=== PATIENT | female | born 1940 | race Caucasian/White ===

== ENCOUNTER 2018-06-23 03:25 | Emergency (ER) | payer MEDICARE, MEDICAID ==
[~2018-06-23 03:25] MED LIST: ACET500T73 PO; AMLO10TA4 PO; AMOX1TAB63 PO; BUSP10TA PO; BUSP7.5T3 PO; DONE5TAB53 PO; ESCI10TA10 PO; FURO40TA4 PO; LACT1CAP4 PO; LEVO112T5 PO; LEVO137T2 PO; LORA-447 PO; LORA10TA75 PO; Lactobacillus Acidophilus PO; MEMA10TA PO; METO25TA4 PO; NITR100C58 PO; POTA10TA6 PO; RISP0.2518 PO; SERT100T PO; SERT50TA PO; SERT50TA5 PO; SOLI10TA2 PO; TRIA10.8 NS; [UNRECOGNIZED DRUG - CODE] PO
[2018-06-23 03:37] VITALS: BP 107/41
--- NOTE | 2018-06-23 03:50 | ER.PDOC ---
General Chief Complaint: Trauma Stated Complaint: FALL WITH INJURY Time seen by MD: 03:42 Source: patient Exam Limitations: no limitations History of Present Illness Initial Comments Pt fell of her bed at OR and fractured right upper fibula Onset: this evening Recent Injury: Yes Where: other (OR) Severity: mild Allergies: Coded Allergies: No Known Drug Allergies (Verified Allergy, Unknown, 05/01/16) Home Meds Active Scripts Potassium Chloride (KLOR-CON 10) 10 Meq Tablet.er, 20 MEQ PO DAILY24 for 30 Days , #60 TABLET Prov:SHOLA LINN MD 08/13/17 Furosemide (FUROSEMIDE) 40 Mg Tablet, 40 MG PO DAILY24 for 30 Days, #30 TABLET Prov:SHOLA LINN MD 08/13/17 Amoxicillin/Potassium Clav (AUGMENTIN 875-125 TABLET) 1 Each Tablet, 1 EACH PO BID for 5 Days, #10 TABLET Prov:SHOLA LINN MD 08/13/17 Sertraline Hcl (ZOLOFT) 50 Mg Tablet, 100 MG PO DAILY, #30 TABLET Prov:KEITH CUNNINGHAM MD 01/12/17 Risperidone (RISPERDAL) 0.25 Mg Tablet, 0.25 MG PO HS, #30 TABLET Prov:KEITH CUNNINGHAM MD 01/12/17 Levothyroxine Sodium (LEVOTHYROXINE SODIUM) 112 Mcg Tablet, 1 TAB PO DAILY, #30 TAB 5 Refills Prov:CHARBEL IBRAHIM MD 05/04/16 Metoprolol Tartrate 25MG (LOPRESSER 25MG) 25 Mg Tablet, 12.5 MG PO BID, #1 TABLET Prov:CHARBEL IBRAHIM MD 05/04/16 Donepezil Hcl (ARICEPT) 5 Mg Tablet, 10 MG PO HS, #1 TABLET Prov:CHARBEL IBRAHIM MD 05/04/16 Reported Medications Buspirone Hcl (BUSPIRONE HCL) 10 Mg Tablet, 1 TAB PO TID, #60 TAB 2 Refills 08/07/17 Sertraline Hcl (ZOLOFT) 100 Mg Tablet, 200 MG PO DAILY, TABLET 08/07/17 Levothyroxine Sodium (SYNTHROID) 137 Mcg Tablet, 1 TAB PO DAILY, #30 TAB 5 Refills 08/07/17 Amlodipine Besylate (NORVASC) 10 Mg Tablet, 1 TAB PO DAILY, #30 TAB 5 Refills 08/07/17 Loratadine (CLARITIN) 10 Mg Tablet, 1 TAB PO DAILY, #30 TAB 5 Refills 08/07/17 Triamcinolone Acetonide (Nasacort) 10.8 Ml [place], 10.8 ML NS DAILY, SPRAY 01/04/17 Buspirone Hcl (BUSPIRONE HCL) 7.5 Mg Tablet, 7.5 MG PO TID, TABLET 01/04/17 Acetaminophen (TYLENOL EXTRA STRENGTH) 500 Mg Tablet, 500 MG PO BID, TABLET 01/04/17 Memantine Hcl (NAMENDA) 10 Mg Tablet, 1 TAB PO BID, #180 TAB 1 Refill 01/04/17 Lactobacillus Acidophilus (ACIDOPHILUS) 1 Each Capsule, 2 EACH PO BID, CAPSULE 01/04/17 Past Medical History Surgical History: hip, hysterectomy, knee Social History Drug Use: none Review of Systems Constitutional: no symptoms reported Musculoskeletal: see HPI All Other Systems: Reviewed and Negative Physical Exam General Appearance: Alert, No Apparent Distress Lower Extremity: tenderness (right upper leg) Joint Exam: joints nml, nml ROM, nml gait/weight bearing Vascular: no vascular compromise, pulses full/equal Neuro/Psych: sensation nml, motor nml, oriented x3, CN's nml as tested, mood/ affect nml Skin: color nml, warm/dry, no rash Back/Neck: nml inspection EENT: eyes inspection nml, ENT inspection nml, pharynx nml Respiratory: no resp distress, breath sounds nml CVS: reg rate & rhythm, heart sounds nml Abdomen: non-tender, no organomegaly, no bruit/mass Departure Time of Disposition: 03:48 Disposition: HOME, SELF-CARE Impression: Primary Impression: Fracture of right proximal fibula Condition: Stable Patient Instructions: Fibular Fracture, Adult, Treated Without Immobilization Referrals: CARMELO GIBSON TAXI DRIVER SUPERVISOR (PCP) PRIMARY CARE PROVIDER Duration or Time Spent with Pa: SERG WHITTINGTON MD Jun 23, 2018 03:50
--- NOTE | 2018-06-23 04:05 | NUR ---
DISCHARGE CALLED AND NOTIFIED [facility] PATIENT WAS READY FOR DISCHARGE.
--- NOTE | 2018-06-23 04:39 | DIREP ---
PROCEDURE:XRAY TIB & FIB 2 VW-RT COMPARISON:None. INDICATIONS:fall FINDINGS: BONES:Proximal transverse fibular fracture. No tibial fracture JOINTS:Normal. SOFT TISSUES:Normal. OTHER:No additional findings. CONCLUSION:Proximal transverse fibular fracture Dictated by: Kevin Reeves MD on 06/23/2018 at 04:36 AM
[2018-06-23 04:45] VITALS: BP 138/61
[2018-06-23 05:24] VITALS: BP 150/65
[2018-06-23 06:06] VITALS: BP 163/62
--- NOTE | 2018-06-23 06:25 | NUR ---
CALL FOR TRANSPORT CALLED [facility] TO CHECK ON ETA OF TRANSPORT BACK TO [facility]. THEY DID NOT HAVE A TIME AND WILL CALL BACK AND LET NURSE KNOW.
[2018-06-23 08:03] VITALS: BP 163/62
== END 2018-06-23 06:00 | disposition home or self-care (01) ==
LOC: EDBD 03:25 → ER 03:25
DX: S82.831A Other fracture of upper and lower end of right fibula, initial encounter for closed fracture (principal); Z79.2 Long term (current) use of antibiotics; Z79.899 Other long term (current) drug therapy; Z90.710 Acquired absence of both cervix and uterus; W06.XXXA Fall from bed, initial encounter; Y93.89 Activity, other specified; Y92.128 Other place in nursing home as the place of occurrence of the external cause; Y99.8 Other external cause status
CPT/HCPCS: 99285; 73590-RT

== ENCOUNTER → 2018-10-05 | Outpatient (CLI) | payer MEDICARE, MEDICAID ==
[2018-10-05 17:40] LABS: CALCIUM 9.8 mg/dL (8.4-10.5); CARBON DIOXIDE 26.6 mmol/L (20.0-32)
== END | disposition home or self-care (01) ==
LOC: LAB 16:59
PROVIDERS: ATTEND Family Medicine
DX: I11.0 Hypertensive heart disease with heart failure (principal); I50.9 Heart failure, unspecified; E03.9 Hypothyroidism, unspecified; F33.1 Major depressive disorder, recurrent, moderate
CPT/HCPCS: 80048

== ENCOUNTER 2018-11-13 17:30 | Inpatient (IN) | payer MEDICARE, MEDICAID ==
[~2018-11-13] VITALS: Ht 152.4 cm; Wt 69.6 kg
[~2018-11-13 17:30] MED LIST changes: -LEVO175T5 PO
--- NOTE | 2018-11-13 17:31 | NUR ---
ARRIVAL PATIENT TO ROOM 6, VIA EMS. EMS STATES THAT SHE HAS BEEN VOMITING AND STARTED RUNNING FEVER FOR A DAY. PATIENT IS WEAK, AND LISTLESS, BUT ABLE TO COMMUNICATE AND IS ORIENTED. PATIENT IS DIMENISHED THROUGHOUT WITH WHEEZES AND CRACKLES. PATIENT VOMITTED X1 UPON ARRIVAL TO THE ED. PATIENT CONNECTED TO ALL MONITORS, ASSESSMENT COMPLETED, ASSOCIATE MANAGER AFFILIATE MARKETING IN PLACE. MD AT BEDSIDE.
[2018-11-13] MEDS ORDERED: DECADRON ONE (17:39)
[2018-11-13] MEDS ORDERED: DUONEB 0.5 MG-3 MG/3 ML SOLN IH STA (17:39)
[2018-11-13] MEDS ORDERED: DECADRON IH STA (17:39)
[2018-11-13] MEDS ORDERED: DUONEB 0.5 MG-3 MG/3 ML SOLN IH ONE (17:39)
[2018-11-13] MEDS ORDERED: LASIX IV STA (17:41)
[2018-11-13 17:43] VITALS: BP 149/104
[2018-11-13] MEDS ORDERED: ZOFRAN IV STA (17:52)
--- NOTE | 2018-11-13 17:59 | PCM.EKG ---
[facility] Test Date: 2018-11-13 Test Time: 17:57:24 Pat Name: JESSICA STEVE Department: [id number] Room: Gender: F Horticultural Farmworker: : 1940 Requested By: DILMA TENORIO Order Number: [id number] Reading MD: Measurements Intervals [place]vin Rate: 121 P: 49 DE: 150 QRS: -36 QRSD: 130 T: 128 QT: 306 QTc: 434 Interpretive Statements Sinus tachycardia Left axis deviation Nonspecific intraventricular block Inferior infarct, age undetermined Abnormal ECG Compared to ECG 08/09/2017 09:30:00 Left-axis deviation now present Sinus rhythm no longer present Myocardial infarct finding still present Please click the below link to view image of tracing.
[2018-11-13 18:09] LABS: BASOPHIL % 0.2 % (0.0-0.2); HEMOGLOBIN 14.5 g/dL (12.0-15.0); LYMPHOCYTES # 2.4 10^3/uL (1.0-4.8); LYMPHOCYTES % 15.1 % (24.0-44.0); MEAN CELL HGB 31.1 pg (26-34); MEAN CELL HGB CONCENTRATION 32.8 g/dL (33-37); MEAN CORP VOLUME 94.8 fL (78-100); MEAN PLATELET VOLUME 10.1 fL (7.8-11.0); MONOCYTES # 1.5 10^3/uL (0.3-0.8); MONOCYTES % 9.1 % (5.0-12.0); NEUTROPHIL # 12.2 10^3/uL (1.8-7.7); NEUTROPHILS % 75.4 % (41.0-85.0); RED CELL DISTRIBUTION WIDTH 14.7 % (11.5-14.5); WHITE BLOOD CELL 16.1 10^3/uL (4.5-11.0)
--- NOTE | 2018-11-13 18:20 | DIREP ---
PROCEDURE:CHEST 1 VIEW COMPARISON:[facility], CR, XRAY CHEST 2 VWS, 08/09/2017, 04:40 PM. INDICATIONS:dyspnea, crackles , FINDINGS: LUNGS/PLEURA:No significant pulmonary parenchymal abnormalities. No effusions. VASCULATURE:Normal. Unremarkable pulmonary vasculature. CARDIAC:Normal. No cardiac silhouette abnormality or cardiomegaly. MEDIASTINUM:Atherosclerotic aorta with no visible aneurysm. BONES:Normal. No fracture or visible bony lesion. OTHER:Fibrotic changes of the lungs. EKG leads. Elevated right diaphragm. CONCLUSION:Fibrotic changes are seen. No acute cardiopulmonary disease. Dictated by: Ernesto Chen M.D. on 11/13/2018 at 06:19 PM
[2018-11-13 18:35] LABS: CALCIUM 9.6 mg/dL (8.4-10.5); CARBON DIOXIDE 22.9 mmol/L (20.0-32)
[2018-11-13] MEDS ORDERED: ZOFRAN ONE (18:42)
--- NOTE | 2018-11-13 18:59 | ER.PDOC ---
General Chief Complaint: Fever Stated Complaint: VOMITING Time seen by MD: 19:00 Source: patient Exam Limitations: no limitations History of Present Illness Timing/Duration: 24 hours Severity: moderate Activities at Onset: activity/exertion, rest Prior Episodes/Possible Cause: occasional episodes Modifying Factors: improves with albuterol inhaler, improves with albuterol nebulizer, improves with coughing, improves with lying down, improves with oxygen Associated Symptoms: cough Prior symptoms/Treatment: Recenly Seen Allergies: Coded Allergies: No Known Drug Allergies (Verified Allergy, Unknown, 05/01/16) Home Meds Active Scripts Potassium Chloride (KLOR-CON 10) 10 Meq Tablet.er, 20 MEQ PO DAILY24 for 30 Days , #60 TABLET Prov:SHOLA LINN MD 08/13/17 Furosemide (FUROSEMIDE) 40 Mg Tablet, 40 MG PO DAILY24 for 30 Days, #30 TABLET Prov:SHOLA LINN MD 08/13/17 Amoxicillin/Potassium Clav (AUGMENTIN 875-125 TABLET) 1 Each Tablet, 1 EACH PO BID for 5 Days, #10 TABLET Prov:SHOLA LINN MD 08/13/17 Sertraline Hcl (ZOLOFT) 50 Mg Tablet, 100 MG PO DAILY, #30 TABLET Prov:KEITH CUNNINGHAM MD 01/12/17 Risperidone (RISPERDAL) 0.25 Mg Tablet, 0.25 MG PO HS, #30 TABLET Prov:KEITH CUNNINGHAM MD 01/12/17 Levothyroxine Sodium (LEVOTHYROXINE SODIUM) 112 Mcg Tablet, 1 TAB PO DAILY, #30 TAB 5 Refills Prov:CHARBEL IBRAHIM MD 05/04/16 Metoprolol Tartrate 25MG (LOPRESSER 25MG) 25 Mg Tablet, 12.5 MG PO BID, #1 TABLET Prov:CHARBEL IBRAHIM MD 05/04/16 Donepezil Hcl (ARICEPT) 5 Mg Tablet, 10 MG PO HS, #1 TABLET Prov:CHARBEL IBRAHIM MD 05/04/16 Reported Medications Buspirone Hcl (BUSPIRONE HCL) 10 Mg Tablet, 1 TAB PO TID, #60 TAB 2 Refills 08/07/17 Sertraline Hcl (ZOLOFT) 100 Mg Tablet, 200 MG PO DAILY, TABLET 08/07/17 Levothyroxine Sodium (SYNTHROID) 137 Mcg Tablet, 1 TAB PO DAILY, #30 TAB 5 Refills 08/07/17 Amlodipine Besylate (NORVASC) 10 Mg Tablet, 1 TAB PO DAILY, #30 TAB 5 Refills 08/07/17 Loratadine (CLARITIN) 10 Mg Tablet, 1 TAB PO DAILY, #30 TAB 5 Refills 08/07/17 Triamcinolone Acetonide (Nasacort) 10.8 Ml [place], 10.8 ML NS DAILY, SPRAY 01/04/17 Buspirone Hcl (BUSPIRONE HCL) 7.5 Mg Tablet, 7.5 MG PO TID, TABLET 01/04/17 Acetaminophen (TYLENOL EXTRA STRENGTH) 500 Mg Tablet, 500 MG PO BID, TABLET 01/04/17 Memantine Hcl (NAMENDA) 10 Mg Tablet, 1 TAB PO BID, #180 TAB 1 Refill 01/04/17 Lactobacillus Acidophilus (ACIDOPHILUS) 1 Each Capsule, 2 EACH PO BID, CAPSULE 01/04/17 Past Medical History Medical History: asthma, cardiac problems, congestive heart failure, COPD, high cholesterol, hypertension, thyroid disease Surgical History: hysterectomy Social History Smoking: non-smoker Alcohol Use: none Drug Use: none Reviewed Nursing Reviewed: Vital Signs, Abn. Noted Review of Systems All Other Systems: Reviewed and Negative Physical Exam General Appearance: Lethargic HEENT: PERRL/EOMI, Normal ENT Inspection, TMs Normal, Pharynx Normal Neck: Non-Tender, Full Range of Motion, Supple, Normal Inspection Respiratory: prolonged expirations, rales, retractions Gastrointestinal: Normal Bowel Sounds, No Organomegaly, No Pulsatile Mass, Non Tender, Soft Extremities: Normal Range of Motion, Non-Tender, Normal Inspection, No Pedal Edema, No Calf Tenderness, Normal Capillary Refill Neurologic/Psychiatric: pipeline technician II-XII NML as Tested, No Motor/Sensory Deficits, Alert, Normal Mood/Affect, Oriented x 3 Skin: Normal Color, Warm/Dry Lymphatic: No Adenopathy Results/Orders Results/Orders Laboratory Tests Test 11/13/18 18:00 White Blood Count 16.1 10^3/uL (4.5-11.0) Red Blood Count 4.66 10^6/uL (4.00-5.20) Hemoglobin 14.5 g/dL (12.0-15.0) Hematocrit 44.2 % (36.0-46.0) Mean Corpuscular Volume 94.8 fL (78-100) Mean Corpuscular Hemoglobin 31.1 pg (26-34) Mean Corpuscular Hemoglobin Concent 32.8 g/dL (33-37) Red Cell Distribution Width 14.7 % (11.5-14.5) Platelet Count 179 10^3/uL (150-400) Mean Platelet Volume 10.1 fL (7.8-11.0) Neutrophils (%) (Auto) 75.4 % (41.0-85.0) Lymphocytes (%) (Auto) 15.1 % (24.0-44.0) Monocytes (%) (Auto) 9.1 % (5.0-12.0) Neutrophils # (Auto) 12.2 10^3/uL (1.8-7.7) Lymphocytes # (Auto) 2.4 10^3/uL (1.0-4.8) Monocytes # (Auto) 1.5 10^3/uL (0.3-0.8) Absolute Immature Granulocyte (auto 0.03 10^3 u/L (0-2) Eosinophils % 0.0 % (0.0-5.0) Basophils % 0.2 % (0.0-0.2) Basophils # 0.0 10^3/uL (0.0-0.1) Eosinophil Count 0.0 10^3/uL (0.0-0.2) Prothrombin Time 10.5 SEC (9.8-11.9) Prothrombin Time INR (Non-Therap) 1.1 Activated Partial Thromboplast Time 26.3 SEC (24.67-30.72) D-Dimer 2.14 mg/L (0.19-0.49) Sodium Level 138 mmol/L (132-145) Potassium Level 3.7 mmol/L (3.6-5.2) Chloride Level 99.0 mmol/L (96-109) Carbon Dioxide Level 22.9 mmol/L (20.0-32) Anion Gap 19.8 Blood Urea Nitrogen 18 mg/dL (7-18) Creatinine 1.30 mg/dL (0.59-1.40) Estimated GFR () 48.1 (>/=60) BUN/Creatinine Ratio 13.0 Glucose Level 158 mg/dL (70-110) Calcium Level 9.6 mg/dL (8.4-10.5) Total Bilirubin 0.4 mg/dL (0.2-1.0) Aspartate Amino Transf (AST/SGOT) 28 U/L (0-35) Alanine Aminotransferase (ALT/SGPT) 16 U/L (12-78) Alkaline Phosphatase 84 U/L (50-136) Total Creatine Kinase 73 U/L (26-192) Troponin I 0.04 ng/mL (0.00-0.05) Pro-B-Type Natriuretic Peptide 1331 pg/mL (0-450) Total Protein 8.9 g/dL (6.4-8.2) Albumin 3.3 g/dL (3.4-5.0) Globulin 5.6 Percent Immature Gran (Cell Imm) 0.20 % (0.00-0.50) Helicobacter pylori Screen NEGATIVE (NEGATIVE) Administered Medications Medications (Trade) Dose Ordered Sig/Nj Route PRN Reason Start Time Stop Time Status Last Admin Dose Admin Dexamethasone Sodium Phosphate (Decadron) 4 mg STAT STAT IH 11/13/18 17:39 11/13/18 17:41 DC 11/13/18 17:45 Albuterol/ Ipratropium (Duoneb 0.5 Mg-3 Mg/3 ml Soln) 3 ml STAT STAT IH 11/13/18 17:39 11/13/18 17:41 DC 11/13/18 17:45 Ondansetron HCl (Zofran) 4 mg STAT STAT IV 11/13/18 17:52 11/13/18 17:53 DC 11/13/18 18:45 EKG/XRAY/CT/US EKG Comments: LBBB Consult/PCP Time Consult/PCP Called: 19:00 Consult/PCP: DR LEW Course Sepsis Screening Results: Posi: POSITIVE SEPSIS RISK Duration or Total Time Spent w: 10 Vitals & review Data Vital Sign - Last 24 Hours 11/13/18 11/13/18 11/13/18 11/13/18 17:33 17:33 17:43 17:46 Temp 101.7 101.2 101.2 101.7 101.2 101.2 Pulse 106 102 102 109 Resp 32 32 32 26 B/P (MAP) 149/104 (119) Pulse Ox 92 92 93 O2 Delivery Nasal Canula Nasal Canula 11/13/18 17:47 Pulse 115 Resp 26 Pulse Ox 93 Laboratory Tests Test 11/13/18 18:00 White Blood Count 16.1 10^3/uL Red Blood Count 4.66 10^6/uL Hemoglobin 14.5 g/dL Hematocrit 44.2 % Mean Corpuscular Volume 94.8 fL Mean Corpuscular Hemoglobin 31.1 pg Mean Corpuscular Hemoglobin Concent 32.8 g/dL Red Cell Distribution Width 14.7 % Platelet Count 179 10^3/uL Mean Platelet Volume 10.1 fL Neutrophils (%) (Auto) 75.4 % Lymphocytes (%) (Auto) 15.1 % Monocytes (%) (Auto) 9.1 % Neutrophils # (Auto) 12.2 10^3/uL Lymphocytes # (Auto) 2.4 10^3/uL Monocytes # (Auto) 1.5 10^3/uL Absolute Immature Granulocyte (auto 0.03 10^3 u/L Eosinophils % 0.0 % Basophils % 0.2 % Basophils # 0.0 10^3/uL Eosinophil Count 0.0 10^3/uL Prothrombin Time 10.5 SEC Prothrombin Time INR (Non-Therap) 1.1 Activated Partial Thromboplast Time 26.3 SEC D-Dimer 2.14 mg/L Sodium Level 138 mmol/L Potassium Level 3.7 mmol/L Chloride Level 99.0 mmol/L Carbon Dioxide Level 22.9 mmol/L Anion Gap 19.8 Blood Urea Nitrogen 18 mg/dL Creatinine 1.30 mg/dL Estimated GFR () 48.1 BUN/Creatinine Ratio 13.0 Glucose Level 158 mg/dL Calcium Level 9.6 mg/dL Total Bilirubin 0.4 mg/dL Aspartate Amino Transf (AST/SGOT) 28 U/L Alanine Aminotransferase (ALT/SGPT) 16 U/L Alkaline Phosphatase 84 U/L Total Creatine Kinase 73 U/L Troponin I 0.04 ng/mL Pro-B-Type Natriuretic Peptide 1331 pg/mL Total Protein 8.9 g/dL Albumin 3.3 g/dL Globulin 5.6 Percent Immature Gran (Cell Imm) 0.20 % Helicobacter pylori Screen NEGATIVE Current Medications Medications (Trade) Dose Ordered Sig/Nj PRN Reason Start Time Stop Time Status Last Admin Piperacillin Sod/ Tazobactam Sod 3.375 gm/Sodium Chloride 100 ml @ 100 mls/hr Q6H 11/13/18 19:00 12/13/18 18:59 Sepsis Infection Criteria Pres: None O2 Sat by Pulse Oximetry: 93 Departure Time of Disposition: 19:00 Disposition: 09 ADMITTED INPATIENT Impression: Primary Impression: Pneumonia Condition: Stable Referrals: CARMELO GIBSON AUTOMOBILE TIRE BUILDER (PCP) PRIMARY CARE PROVIDER Duration or Time Spent with Pa: 2 HRS DILMA TENORIO MD Nov 13, 2018 18:59
[2018-11-13] MEDS ORDERED: ZOSYN 3.375 GRAM VIAL 3.375 GM in NS 100ML 100 ML IV SCH (19:00)
[2018-11-13 19:51] VITALS: BP 152/113
--- NOTE | 2018-11-13 19:52 | NUR ---
Fever Notifed Dr. Del Valle of patients fever. Suggested antipyretic. Doctor Ivon states that they can treat fever upstairs.
[2018-11-13 20:03] LABS: BILIRUBIN,URINE NEGATIVE (NEGATIVE); UROBILINOGEN,URINE NORMAL (NEGATIVE)
[2018-11-13 20:14] LABS: APPEARANCE,URINE CLOUDY (CLEAR); UA COLOR YELLOW (YELLOW)
[2018-11-13 21:15] VITALS: BP 129/93
[2018-11-13] MEDS ORDERED: LASIX ONE (21:23)
[2018-11-13] MEDS ORDERED: ZOSYN 3.375 GRAM VIAL IV ONE (21:23)
[2018-11-13] MEDS ORDERED: NS 100ML 100 ML IV ONE (21:24)
[2018-11-13] MEDS ORDERED: TYLENOL PO PRN (22:00)
[2018-11-13] MEDS: NS 1000ML 1,000 ML SCH (22:01)
--- NOTE | 2018-11-13 23:38 | PCM.HP ---
HISTORY & PHYSICAL HISTORY & PHYSICAL DATE OF ADMISSION: CHIEF COMPLAINT: 78 yo female from SNF in [facility] comes in with altered LOC, UroSepsis, Exac of acute Diastolic CHf and infectious enceph. H&P # [id number] HISTORY OF PRESENT ILLNESS: ALLERGIES: CURRENT MEDICATIONS: PAST MEDICAL HISTORY: SOCIAL HISTORY: FAMILY HISTORY: REVIEW OF SYSTEMS: PHYSICAL EXAMINATION: GENERAL: VITAL SIGNS: HEENT: NECK: LUNGS: HEART: ABDOMEN: EXTREMITIES: NEUROLOGIC: LABORATORY DATA: IMPRESSION: CARE PLAN: AROLDO LEW MD Nov 13, 2018 23:38
[2018-11-14] MEDS ORDERED: ULTRAM PO PRN
[2018-11-14] MEDS ORDERED: ZOFRAN IV PRN
--- NOTE | 2018-11-14 00:02 | HPH ---
ADMIT DATE: 11/13/2018 CHIEF COMPLAINT: Nausea, vomiting and mental status change. HISTORY OF PRESENT ILLNESS: This is a 78-year-old female with a past medical history of multiple medical problems who currently is living at a senior living facility in [place], who presents to the Emergency Department after worsening mental status change. The family was called earlier today because the patient had a temperature of 102 and when the family arrived, the patient apparently had worsening of her mental status. She has a baseline dementia, but it was much worse when they arrived. The fever had resolved, but she had begun having nausea and vomiting and mental status change. Over the next several hours, she began having worsening shortness of breath as well as wheezing and coughing and a decrease in her oxygen level as well as a decrease overall in her mentation level and there was some concern for possible aspiration. However, she did not have any further fever. She was very confused and not able to describe what was wrong with her or where she was feeling bad. PAST MEDICAL HISTORY: 1. Hypertension. 2. Generalized anxiety. 3. Dementia. 4. Osteoarthritis. 5. Allergic rhinitis. 6. Hypothyroidism. 7. Dysthymia. 8. Altered mental status with acute psychosis on top of dementia. 9. Chronic diastolic congestive heart failure. MEDICATIONS: See admit medication reconciliation form. ALLERGIES: No known drug allergies. PAST SURGICAL HISTORY: Hysterectomy - partial. SOCIAL HISTORY: Tobacco -- quit 20 years ago, alcohol -- none. The patient currently lives in a senior living facility in [place], [place]. She does have family that lives nearby. FAMILY HISTORY: Reviewed. REVIEW OF SYSTEMS: The 11-point review of systems is reviewed and is unchanged other than that as mentioned above. OBJECTIVE: VITAL SIGNS: Temperature 102.7, heart rate 110, respirations 26, blood pressure 152/113, oxygen saturation 90% on 2 liters nasal cannula. GENERAL: This is an elderly appearing female, in mild distress. She is moaning. She is awake, but not alert. I could not get her to answer questions or follow commands. HEENT: Atraumatic, normocephalic. Sclerae are clear and anicteric. Oral mucosa is moist. NECK: Soft, supple, normal range of motion, no tenderness, bruits, goiter, mass or adenopathy. There is no JVD. LUNGS: Decreased breath sounds bilaterally with rhonchi at bilateral bases. HEART: Regular rate and rhythm without murmurs, S3 or S4. ABDOMEN: Soft, nontender, nondistended. EXTREMITIES: No new changes or edema. LABORATORY DATA: WBC 16.1, hemoglobin 14.5, hematocrit 44.2, platelets 179. Sodium 138, potassium 3.7, chloride 99, CO2 of 22.9, BUN 18, creatinine 1.3, glucose 158. ProBNP 1331. Total protein 8.9, albumin 3.3. UA: Positive nitrite, too numerous to count wbc's. Chest x-ray: "Fibrotic changes are seen, no acute cardiopulmonary disease." ASSESSMENT: 1. Acute altered mental status. 2. Infectious encephalopathy -- present on admission. 3. Severe sepsis. 4. Urinary tract infection. 5. Probable aspiration pneumonia. 6. Chronic obstructive pulmonary disease. 7. Probable acute diastolic congestive heart failure. PLAN: 1. The patient is admitted to [facility] telemetry where she will be diuresed very gently. She does need some IV fluids for her sepsis and hydration, but also we need to be cautious with fluids because of her volume overload. 2. I am going to start her on Zosyn and azithromycin. 3. We will put her on stress ulcer and DVT prophylaxis. 4. Await further culture results. Keith Mcnally MD DR: LIBIA/itzel JOB# [id number]
[2018-11-14 01:13] VITALS: BP 135/86
[2018-11-14] MEDS ORDERED: LEVO175T5 PO (01:57)
[2018-11-14] MEDS ORDERED: ZOSYN 3.375 GRAM VIAL IV ONE ×2 (04:22→17:29)
[2018-11-14] MEDS ORDERED: NS 100ML 100 ML IV ONE ×2 (04:22→17:29)
[2018-11-14] MEDS: ZOSYN 3.375 GM/50 ML IV SCH ×4 (04:28→17:31)
[2018-11-14] MEDS: NS 1000ML 1,000 ML SCH ×2 (05:00→16:37)
[2018-11-14 05:35] VITALS: BP 117/56
[2018-11-14 05:36] LABS: BASOPHIL % 0.1 % (0.0-0.2); HEMOGLOBIN 12.3 g/dL (12.0-15.0); LYMPHOCYTES # 3.8 10^3/uL (1.0-4.8); LYMPHOCYTES % 20.3 % (24.0-44.0); MEAN CELL HGB 31.2 pg (26-34); MEAN CELL HGB CONCENTRATION 32.6 g/dL (33-37); MEAN CORP VOLUME 95.7 fL (78-100); MEAN PLATELET VOLUME 9.9 fL (7.8-11.0); MONOCYTES # 1.8 10^3/uL (0.3-0.8); MONOCYTES % 9.7 % (5.0-12.0); NEUTROPHILS % 69.9 % (41.0-85.0); PLATELET COUNT 164 10^3/uL (150-400); RED CELL DISTRIBUTION WIDTH 14.6 % (11.5-14.5); WHITE BLOOD CELL 18.5 10^3/uL (4.5-11.0)
[2018-11-14 05:54] LABS: CALCIUM 8.9 mg/dL (8.4-10.5); CARBON DIOXIDE 25.6 mmol/L (20.0-32)
[2018-11-14 09:33] VITALS: BP 140/58
[2018-11-14] MEDS: PROTONIX PO SCH (09:43)
[2018-11-14] MEDS ORDERED: CHLORASEPTIC MM PRN (10:00)
--- NOTE | 2018-11-14 10:00 | NUR ---
DISCHARGE PLAN CASE MANAGEMENT VISITED WITH PATIENT AND DAUGHTER CONCERNING DISCHARGE PLAN AND NEEDS. CURRENTLY IS A SENIOR LIVING RESIDENT AT [facility]. CM SPOKE WITH ELIOT YOUSSEF OF [facility] AND THE PLAN IS FOR PATIENT TO BE DISCHARGED BACK TO CENTER WHEN DISCHARGED FROM [facility]. PATIENT AND DAUGHTER ARE BOTH IN AGREEABLE WITH THE DISCHARGE PLAN. DENIES FURTHER NEEDS AT THIS TIME.
[2018-11-14 11:45] VITALS: BP 114/82
--- NOTE | 2018-11-14 12:30 | NUR ---
MOUTH SWABS PT OFFERED MOUTH SWABS AT THIS TIME. PT REFUSED TO USE
--- NOTE | 2018-11-14 13:29 | NUR ---
SWALLOW SCREEN SWALLOW SCREEN PERFORMED AT THIS TIME. PT DID NOT PASS. C JANUARY, PT NOTIFIED.
--- NOTE | 2018-11-14 14:30 | NUR ---
SPEECH PER C MAY, PT SPEECH THERAPY UNABLE TO COME TODAY D/T NO THERAPIST HERE TO SEE PT
[2018-11-14 16:25] VITALS: BP 124/65
--- NOTE | 2018-11-14 18:04 | NUR ---
DAUGHTER DAUGHTER AT DESK YELLING AT STAFF. ATTEMPTED TO EDUCATE DAUGHTER THAT PT IS NPO D/T FAILING BESIDE SWALLOW EVAL PERFORMED BY THIS NURSE. DAUGHTER CONTINUES TO YELL AND STATES "NOW I KNOW WHY NO ONE WANTS TO STAY IN THIS [facility]" DAUGHTER REFUSES TO SPEAK TO CHARGE NURSE OR THIS NURSE.
--- NOTE | 2018-11-14 18:35 | NUR ---
Report Received report from Debora Mendez RN
[2018-11-14 20:03] VITALS: BP 144/58
--- NOTE | 2018-11-14 22:34 | PRM.PN ---
Subjective Subjective Date: Nov 14, 2018 Time: 22:34 Subjective a little more alert. Able to answer more questions. Sttill not able to really eat much. Very weak. Unable to stand. VTE VTE Risk Total Score: 4 VTE Risk Score VTE Risk: Score 0-1 = Low Risk (Aggressive mobilization; early ambulation; no VTE prophylaxis required) Score 2: Moderate Risk (Intermittent/Pneumatic Compression Device OR Lovenox/Heparin/Coumadin) Score 3-4: High Risk (Intermittent/Pneumatic Compression Device AND Lovenox/Heparin/Coumadin) Score > or =5: Highest Risk (Intermittent/Pneumatic Compression Device AND Lovenox/Heparin/Coumadin) Antico:Hep/LMWH/Coum/Xarelto: No Mechanical device ordered: No Review of Systems Constitutional: Weakness Respiratory: Shortness of breath Cardiovascular: Edema; No: Chest Pain, Palpitations, Orthopnea, Paroxysmal Noc. Dyspnea, Lt Headedness, Other Genitourinary: Dysuria, Frequency Neurological: Weakness, Incoordination, Change in speech, Confusion Allergies: Coded Allergies: No Known Drug Allergies (Verified Allergy, Unknown, 05/01/16) Scheduled Acetaminophen (Tylenol Extra Strength), 500 MG PO BID, (Reported) Amlodipine Besylate (Norvasc), 1 TAB PO DAILY, (Reported) Buspirone Hcl (Buspirone Hcl), 1 TAB PO TID, (Reported) Donepezil Hcl (Aricept), 10 MG PO HS Lactobacillus Acidophilus (Acidophilus), 2 EACH PO BID, (Reported) Levothyroxine Sodium (Levothyroxine Sodium), 1 TAB PO DAILY, (Reported) Loratadine (Claritin), 1 TAB PO DAILY, (Reported) Memantine Hcl (Namenda), 1 TAB PO BID, (Reported) Metoprolol Tartrate 25MG (Lopresser 25MG), 12.5 MG PO BID Risperidone (Risperdal), 0.25 MG PO HS Sertraline Hcl (Zoloft), 200 MG PO DAILY, (Reported) Triamcinolone Acetonide (Nasacort), 10.8 ML NS DAILY, (Reported) Discontinued Medications Amoxicillin/Potassium Clav (Augmentin 875-125 Tablet), 1 EACH PO BID Discontinued Reason: No Longer Taking Buspirone Hcl (Buspirone Hcl), 7.5 MG PO TID, (Reported) Discontinued Reason: No Longer Taking Furosemide (Furosemide), 40 MG PO DAILY24 Discontinued Reason: No Longer Taking Levothyroxine Sodium (Levothyroxine Sodium), 1 TAB PO DAILY Discontinued Reason: No Longer Taking Levothyroxine Sodium (Synthroid), 1 TAB PO DAILY, (Reported) Discontinued Reason: Prescription changed Potassium Chloride (Klor-Con 10), 20 MEQ PO DAILY24 Discontinued Reason: No Longer Taking Sertraline Hcl (Zoloft), 100 MG PO DAILY Discontinued Reason: No Longer Taking Objective Vitals and I/O Vital Sign - Last 24 Hours 11/13/18 11/13/18 11/14/18 11/14/18 23:35 23:35 01:13 05:35 Temp 99.1 99.2 99.1 99.2 Pulse 110 98 87 Resp 26 26 18 20 B/P (MAP) 135/86 (102) 117/56 (76) Pulse Ox 90 90 96 92 O2 Delivery Nasal Cannula Nasal Canula Nasal Canula O2 Flow Rate 3.00 3.00 3.00 11/14/18 11/14/18 11/14/18 11/14/18 09:33 09:45 10:05 10:21 Temp 98.3 98.3 Pulse 70 91 91 Resp 16 20 20 B/P (MAP) 140/58 (85) Pulse Ox 94 93 93 O2 Delivery Nasal Canula Nasal Cannula Nasal Cannula Nasal Cannula O2 Flow Rate 3.00 3.00 3.00 3.00 FiO2 32 32 11/14/18 11/14/18 11/14/18 11/14/18 11:45 16:25 20:03 20:18 Temp 99.8 98.8 99.8 98.8 Pulse 76 88 74 80 Resp 18 11 18 18 B/P (MAP) 114/82 (93) 124/65 (84) 144/58 (86) Pulse Ox 98 94 95 96 O2 Delivery Nasal Canula Nasal Canula Nasal Canula Nasal Cannula O2 Flow Rate 3.00 3.00 3.00 3.00 FiO2 32 11/14/18 21:42 O2 Delivery Nasal Cannula O2 Flow Rate 3.00 Intake and Output 11/13/18 11/13/18 11/14/18 15:00 23:00 07:00 Intake Total 0 ml Output Total 650 ml Balance -650 ml General: Alert, Oriented X3, Cooperative, No acute distress HEENT: PERRLA, EOMI Lungs: Normal air movement, Other Heart: Regular rate, Normal S1, Normal S2 Abdomen: Normal bowel sounds, Soft, No tenderness Extremities: No clubbing, No cyanosis, Other Neuro: Normal speech, Strength at 5/5 X4 ext, Cranial nerves 3-12 NL Psych/Mental Status: Mood NL All Results(Lab/Rad) Laboratory Tests Test 11/14/18 05:10 White Blood Count 18.5 10^3/uL Red Blood Count 3.94 10^6/uL Hemoglobin 12.3 g/dL Hematocrit 37.7 % Mean Corpuscular Volume 95.7 fL Mean Corpuscular Hemoglobin 31.2 pg Mean Corpuscular Hemoglobin Concent 32.6 g/dL Red Cell Distribution Width 14.6 % Platelet Count 164 10^3/uL Mean Platelet Volume 9.9 fL Neutrophils (%) (Auto) 69.9 % Lymphocytes (%) (Auto) 20.3 % Monocytes (%) (Auto) 9.7 % Neutrophils # (Auto) 13.0 10^3/uL Lymphocytes # (Auto) 3.8 10^3/uL Monocytes # (Auto) 1.8 10^3/uL Eosinophils % 0.0 % Basophils % 0.1 % Basophils # 0.0 10^3/uL Eosinophil Count 0.0 10^3/uL Sodium Level 141 mmol/L Potassium Level 3.6 mmol/L Chloride Level 103.0 mmol/L Carbon Dioxide Level 25.6 mmol/L Anion Gap 16.0 Blood Urea Nitrogen 22 mg/dL Creatinine 1.34 mg/dL Estimated GFR () 46.4 BUN/Creatinine Ratio 16.0 Glucose Level 128 mg/dL Hemoglobin A1c 4.9 % Calcium Level 8.9 mg/dL Total Bilirubin 0.3 mg/dL Aspartate Amino Transf (AST/SGOT) 25 U/L Alanine Aminotransferase (ALT/SGPT) 13 U/L Alkaline Phosphatase 58 U/L Total Creatine Kinase 121 U/L Total Protein 7.5 g/dL Albumin 2.7 g/dL Globulin 4.8 Triglycerides Level 78 mg/dL Cholesterol Level 198 mg/dL LDL Cholesterol, Calculated 142.4 VLDL Cholesterol 15.6 HDL Cholesterol 40 mg/dL Cholesterol Ratio (LDL/HDL) 4.381661 Current Medications Medications (Trade) Dose Ordered Sig/Nj Route PRN Reason Start Time Stop Time Status Last Admin Dose Admin Dexamethasone Sodium Phosphate (Decadron) 4 mg STAT STAT IH 11/13/18 17:39 11/13/18 17:41 DC 11/13/18 17:45 Albuterol/ Ipratropium (Duoneb 0.5 Mg-3 Mg/3 ml Soln) 3 ml STAT STAT IH 11/13/18 17:39 11/13/18 17:41 DC 11/13/18 17:45 Albuterol/ Ipratropium (Duoneb 0.5 Mg-3 Mg/3 ml Soln) 3 ml STK-MED ONCE IH 11/13/18 17:39 11/13/18 17:41 DC Dexamethasone Sodium Phosphate (Decadron) 4 mg STK-MED ONCE .ROUTE 11/13/18 17:39 11/13/18 17:41 DC Furosemide (Lasix) 40 mg STAT STAT IV 11/13/18 17:41 11/13/18 17:42 DC 11/13/18 22:01 Ondansetron HCl (Zofran) 4 mg STAT STAT IV 11/13/18 17:52 11/13/18 17:53 DC 11/13/18 18:45 Ondansetron HCl (Zofran) 4 mg STK-MED ONCE .ROUTE 11/13/18 18:42 11/13/18 18:44 DC Piperacillin Sod/ Tazobactam Sod 3.375 gm/Sodium Chloride 100 ml @ 100 mls/hr Q6H IV 11/13/18 19:00 11/13/18 21:34 DC 11/13/18 19:00 Sodium Chloride 1,000 ml @ 100 mls/hr Q10H IV 11/13/18 19:00 12/13/18 18:59 11/13/18 22:01 Piperacillin/ Tazobactam/ Dextrose (Zosyn 3.375 Gm/ 50 ml) 3.375 gm Q6 IV 11/14/18 00:00 12/14/18 00:00 11/14/18 17:31 Furosemide (Lasix) 40 mg STK-MED ONCE .ROUTE 11/13/18 21:23 11/13/18 21:25 DC Piperacillin Sod/ Tazobactam Sod (Zosyn 3.375 Gram Vial) 3.375 gm STK-MED ONCE IV 11/13/18 21:23 11/13/18 21:25 DC Sodium Chloride 100 ml @ ud STK-MED ONCE IV 11/13/18 21:24 11/13/18 21:25 DC Acetaminophen (Tylenol) 1,000 mg Q6HR PRN PO PAIN 11/13/18 22:00 11/14/18 00:31 DC Acetaminophen (Tylenol) 1,000 mg Q6H PRN PO PAIN MILD 11/14/18 00:00 12/14/18 00:00 Ondansetron HCl (Zofran) 4 mg Q4H PRN IV NAUSEA / VOMITING 11/14/18 00:00 12/14/18 00:00 Pantoprazole Sodium (Protonix) 40 mg DAILY PO 11/14/18 09:00 12/14/18 08:59 Tramadol HCl (Ultram) 50 mg Q4HR PRN PO PAIN 11/14/18 00:00 12/14/18 00:00 Sodium Chloride 100 ml @ STK-MED ONCE IV 11/14/18 04:22 11/14/18 04:24 DC Piperacillin Sod/ Tazobactam Sod (Zosyn 3.375 Gram Vial) 3.375 gm STK-MED ONCE IV 11/14/18 04:22 11/14/18 04:24 DC Phenol/Menthol (Chloraseptic) 1 sprays PRN PRN MM PAIN 11/14/18 10:00 12/14/18 09:59 Sodium Chloride 100 ml @ STK-MED ONCE IV 11/14/18 17:29 11/14/18 17:31 DC Piperacillin Sod/ Tazobactam Sod (Zosyn 3.375 Gram Vial) 3.375 gm STK-MED ONCE IV 11/14/18 17:29 11/14/18 17:31 DC Course Sepsis Screening Results: Posi: POSITIVE Sepsis Qualifier/Stage: SEPSIS RISK Duration or Total Time Spent w: 2 HRS Vitals & review Data Vital Sign - Last 24 Hours 11/13/18 11/13/18 11/13/18 11/13/18 17:33 17:33 17:43 17:46 Temp 101.7 101.2 101.2 101.7 101.2 101.2 Pulse 106 102 102 109 Resp 32 32 32 26 B/P (MAP) 149/104 (119) Pulse Ox 92 92 93 O2 Delivery Nasal Canula Nasal Canula 11/13/18 17:47 Pulse 115 Resp 26 Pulse Ox 93 Laboratory Tests Test 11/13/18 18:00 White Blood Count 16.1 10^3/uL Red Blood Count 4.66 10^6/uL Hemoglobin 14.5 g/dL Hematocrit 44.2 % Mean Corpuscular Volume 94.8 fL Mean Corpuscular Hemoglobin 31.1 pg Mean Corpuscular Hemoglobin Concent 32.8 g/dL Red Cell Distribution Width 14.7 % Platelet Count 179 10^3/uL Mean Platelet Volume 10.1 fL Neutrophils (%) (Auto) 75.4 % Lymphocytes (%) (Auto) 15.1 % Monocytes (%) (Auto) 9.1 % Neutrophils # (Auto) 12.2 10^3/uL Lymphocytes # (Auto) 2.4 10^3/uL Monocytes # (Auto) 1.5 10^3/uL Absolute Immature Granulocyte (auto 0.03 10^3 u/L Eosinophils % 0.0 % Basophils % 0.2 % Basophils # 0.0 10^3/uL Eosinophil Count 0.0 10^3/uL Prothrombin Time 10.5 SEC Prothrombin Time INR (Non-Therap) 1.1 Activated Partial Thromboplast Time 26.3 SEC D-Dimer 2.14 mg/L Sodium Level 138 mmol/L Potassium Level 3.7 mmol/L Chloride Level 99.0 mmol/L Carbon Dioxide Level 22.9 mmol/L Anion Gap 19.8 Blood Urea Nitrogen 18 mg/dL Creatinine 1.30 mg/dL Estimated GFR () 48.1 BUN/Creatinine Ratio 13.0 Glucose Level 158 mg/dL Calcium Level 9.6 mg/dL Total Bilirubin 0.4 mg/dL Aspartate Amino Transf (AST/SGOT) 28 U/L Alanine Aminotransferase (ALT/SGPT) 16 U/L Alkaline Phosphatase 84 U/L Total Creatine Kinase 73 U/L Troponin I 0.04 ng/mL Pro-B-Type Natriuretic Peptide 1331 pg/mL Total Protein 8.9 g/dL Albumin 3.3 g/dL Globulin 5.6 Percent Immature Gran (Cell Imm) 0.20 % Helicobacter pylori Screen NEGATIVE Current Medications Medications (Trade) Dose Ordered Sig/Nj PRN Reason Start Time Stop Time Status Last Admin Piperacillin Sod/ Tazobactam Sod 3.375 gm/Sodium Chloride 100 ml @ 100 mls/hr Q6H 11/13/18 19:00 12/13/18 18:59 Sepsis Infection Criteria Pres: Documented Infection LEVEL 1 SEPSIS INFECTION CRITE: Cough/Shortness of Breath, Fever/Chills LEVEL 2-SIRS (LIST ALL THAT AP: [id number] Respiratory Evidence: Need for O2 to keep>90% O2 Sat by Pulse Oximetry: 96 Oxygen Flow Rate: 3.00 Assessment/Plan Assessment/Plan Problems: (1) Diastolic CHF, acute on chronic Status: Chronic Assessment & Plan: Needs aggessive diuresis. Continue same. ICD Code: I50.33 - Acute on chronic diastolic (congestive) heart failure SNOMED: 15595232, 602334420 (2) Pneumonia Status: Acute Assessment & Plan: Continue abx appro for aspiration. Swallow eval in am. ICD Code: J18.9 - Pneumonia, unspecified organism SNOMED: 170465279 (3) Hypertension Permanent Comment: Well controlled. Patient's blood pressures are mostly 120s- 140s/70s-80s. There are a few elevated BP's in the 150s and 160s; however these blood pressures are outliers. - Continue Lopressor 12.5 mg PO BID. Unclear what the rationale for this medication choice is since at this dose Lopressor is unlikely to affect the blood pressure. Perhaps she has some other cardiac history and perhaps this patient has this medication for a benefit other than blood pressure control. - Amlodipine was held at admission, and the patient has not required this medication. Last Edited By: Jonny Boykin MD on Jan 12, 2017 12:36 Onset Date: Unknown Status: Chronic ICD Code: I10 - Essential (primary) hypertension SNOMED: 54737564 (4) Dementia Status: Chronic Assessment & Plan: Worse with infection. INfetious encephalopathy. ICD Code: F03.90 - Unspecified dementia without behavioral disturbance SNOMED: 26538681 (5) Dehydration Status: Acute ICD Code: E86.0 - Dehydration SNOMED: 62465124 (6) UTI (urinary tract infection) Status: Acute Assessment & Plan: Continue Abx. ICD Code: N39.0 - Urinary tract infection, site not specified SNOMED: 37473149 AROLDO LEW MD Nov 14, 2018 22:34
--- NOTE | 2018-11-14 23:07 | NUR ---
Patient laying in bed with eyes closed. Resp even and non labored. No s/s of distress noted at this time. Will continue to monitor. Call light within reach.
[2018-11-15] MEDS ORDERED: NS 100ML 100 ML IV ONE ×3 (00:06→11:11)
[2018-11-15] MEDS ORDERED: ZOSYN 3.375 GRAM VIAL IV ONE ×2 (00:06→05:53)
[2018-11-15] MEDS: NS 1000ML 1,000 ML SCH ×3 (00:08→21:00)
[2018-11-15] MEDS: ZOSYN 3.375 GM/50 ML IV SCH ×2 (00:09→05:57)
[2018-11-15] MEDS: TYLENOL PO PRN ×2 (00:09→16:49)
[2018-11-15 00:31] VITALS: BP 134/94
--- NOTE | 2018-11-15 00:36 | NUR ---
Notified Dr Mcnally of patient lungs sounding wet with rales in lower lungs. Temp 101.8. New orders given to stop fluids and give IV Lasixs 20 MG Xs1
[2018-11-15] MEDS ORDERED: LASIX IV STA ×2 (00:37→07:25)
[2018-11-15 05:04] VITALS: BP 154/74
[2018-11-15 05:38] LABS: BASOPHIL % 0.2 % (0.0-0.2); EOSINOPHIL # 0.1 10^3/uL (0.0-0.2); EOSINOPHIL % 1.1 % (0.0-5.0); HEMOGLOBIN 12.9 g/dL (12.0-15.0); MEAN CELL HGB 31.2 pg (26-34); MEAN CELL HGB CONCENTRATION 32.5 g/dL (33-37); MEAN CORP VOLUME 96.1 fL (78-100); MEAN PLATELET VOLUME 10.1 fL (7.8-11.0); MONOCYTES # 0.9 10^3/uL (0.3-0.8); MONOCYTES % 8.1 % (5.0-12.0); NEUTROPHIL # 8.2 10^3/uL (1.8-7.7); NEUTROPHILS % 72.6 % (41.0-85.0); PLATELET COUNT 141 10^3/uL (150-400); RED CELL DISTRIBUTION WIDTH 14.8 % (11.5-14.5); WHITE BLOOD CELL 11.3 10^3/uL (4.5-11.0)
[2018-11-15 05:51] LABS: CALCIUM 8.6 mg/dL (8.4-10.5); CARBON DIOXIDE 24.5 mmol/L (20.0-32)
--- NOTE | 2018-11-15 06:49 | NUR ---
Report Report given to RADHA Duron
[2018-11-15] MEDS ORDERED: LASIX ONE (07:20)
--- NOTE | 2018-11-15 07:20 | NUR ---
STATUS Pt SOUNDS WHEEZING WHILE LISTENING HER LUNG SOUNDS, CAN HEAR WHEEZING FROM OUTSIDE TOO, NOTIFIED DR LEW RECEIVED AN ORDER FOR LASIX 40 MG STAT AND Q 6 HR, DUO NEB TX Q 8 HR.
[2018-11-15] MEDS ORDERED: DUONEB 0.5 MG-3 MG/3 ML SOLN IH SCH (07:30)
--- NOTE | 2018-11-15 07:39 | NUR ---
STATUS LASIX 40 MG IV STAT, RP MS VI GIVING BREATHING TX AT THI9S TIME, WILL REASSESS THE Pt.
[2018-11-15 08:28] VITALS: BP 143/92
[2018-11-15] MEDS: PROTONIX PO SCH (09:00)
--- NOTE | 2018-11-15 10:54 | NUR ---
status Pt'S WHEEZING DECREASED, Pt STATES " NOT FEELING GOOD" BUT UNABLE TO STATE WHERE SHE IS NOT FEELING FOOD. NOTIFIED DR. LEW VIA TELEPHONE AND ASKED FOR ANY ORDER FOR ABG AND POTASSIUM K THIS MORNING 3.3.
[2018-11-15] MEDS ORDERED: KLOR-CON 10 PO SCH (11:00)
[2018-11-15] MEDS ORDERED: MEROPENEM 500 MG in NS 100ML 100 ML IV SCH ×2 (11:00→12:00)
--- NOTE | 2018-11-15 11:08 | PRM.PN ---
Subjective Subjective Date: Nov 15, 2018 Time: 11:05 Subjective Much more alert today. Complains of weakness. Started eating last night after passing swallow eval and apparently not having any issues or problems. She does not complain of shortness of breath or any other complaints to me other than weakness. VTE VTE Risk Total Score: 4 VTE Risk Score VTE Risk: Score 0-1 = Low Risk (Aggressive mobilization; early ambulation; no VTE prophylaxis required) Score 2: Moderate Risk (Intermittent/Pneumatic Compression Device OR Lovenox/Heparin/Coumadin) Score 3-4: High Risk (Intermittent/Pneumatic Compression Device AND Lovenox/Heparin/Coumadin) Score > or =5: Highest Risk (Intermittent/Pneumatic Compression Device AND Lovenox/Heparin/Coumadin) Antico:Hep/LMWH/Coum/Xarelto: No Mechanical device ordered: No Review of Systems Constitutional: Weakness Respiratory: No: Cough, Dry, Shortness of breath, SOB with excertion, Wheezing , Hemoptysis, Pleuritic Pain, Sputum, Wheezing, Other Cardiovascular: Edema; No: Chest Pain, Palpitations, Orthopnea, Paroxysmal Noc. Dyspnea, Lt Headedness, Other Genitourinary: Dysuria, Frequency Neurological: Weakness, Incoordination, Change in speech, Confusion Allergies: Coded Allergies: No Known Drug Allergies (Verified Allergy, Unknown, 05/01/16) Scheduled Acetaminophen (Tylenol Extra Strength), 500 MG PO BID, (Reported) Amlodipine Besylate (Norvasc), 1 TAB PO DAILY, (Reported) Buspirone Hcl (Buspirone Hcl), 1 TAB PO TID, (Reported) Donepezil Hcl (Aricept), 10 MG PO HS Lactobacillus Acidophilus (Acidophilus), 2 EACH PO BID, (Reported) Levothyroxine Sodium (Levothyroxine Sodium), 1 TAB PO DAILY, (Reported) Loratadine (Claritin), 1 TAB PO DAILY, (Reported) Memantine Hcl (Namenda), 1 TAB PO BID, (Reported) Metoprolol Tartrate 25MG (Lopresser 25MG), 12.5 MG PO BID Risperidone (Risperdal), 0.25 MG PO HS Sertraline Hcl (Zoloft), 200 MG PO DAILY, (Reported) Triamcinolone Acetonide (Nasacort), 10.8 ML NS DAILY, (Reported) Discontinued Medications Amoxicillin/Potassium Clav (Augmentin 875-125 Tablet), 1 EACH PO BID Discontinued Reason: No Longer Taking Buspirone Hcl (Buspirone Hcl), 7.5 MG PO TID, (Reported) Discontinued Reason: No Longer Taking Furosemide (Furosemide), 40 MG PO DAILY24 Discontinued Reason: No Longer Taking Levothyroxine Sodium (Levothyroxine Sodium), 1 TAB PO DAILY Discontinued Reason: No Longer Taking Levothyroxine Sodium (Synthroid), 1 TAB PO DAILY, (Reported) Discontinued Reason: Prescription changed Potassium Chloride (Klor-Con 10), 20 MEQ PO DAILY24 Discontinued Reason: No Longer Taking Sertraline Hcl (Zoloft), 100 MG PO DAILY Discontinued Reason: No Longer Taking Objective Vitals and I/O Vital Sign - Last 24 Hours 11/13/18 11/13/18 11/14/18 11/14/18 23:35 23:35 01:13 05:35 Temp 99.1 99.2 99.1 99.2 Pulse 110 98 87 Resp 26 26 18 20 B/P (MAP) 135/86 (102) 117/56 (76) Pulse Ox 90 90 96 92 O2 Delivery Nasal Cannula Nasal Canula Nasal Canula O2 Flow Rate 3.00 3.00 3.00 11/14/18 11/14/18 11/14/18 11/14/18 09:33 09:45 10:05 10:21 Temp 98.3 98.3 Pulse 70 91 91 Resp 16 20 20 B/P (MAP) 140/58 (85) Pulse Ox 94 93 93 O2 Delivery Nasal Canula Nasal Cannula Nasal Cannula Nasal Cannula O2 Flow Rate 3.00 3.00 3.00 3.00 FiO2 32 32 11/14/18 11/14/18 11/14/18 11/14/18 11:45 16:25 20:03 20:18 Temp 99.8 98.8 99.8 98.8 Pulse 76 88 74 80 Resp 18 18 18 B/P (MAP) 114/82 (93) 124/65 (84) 144/58 (86) Pulse Ox 98 94 95 96 O2 Delivery Nasal Canula Nasal Canula Nasal Canula Nasal Cannula O2 Flow Rate 3.00 3.00 3.00 3.00 FiO2 32 11/14/18 21:42 O2 Delivery Nasal Cannula O2 Flow Rate 3.00 Intake and Output 11/13/18 11/13/18 11/14/18 15:00 23:00 07:00 Intake Total 0 ml Output Total 650 ml Balance -650 ml General: Alert, Cooperative, No acute distress, Other ( chronic confusion.) HEENT: PERRLA, EOMI Lungs: Normal air movement, Other ( Mild wheezing bilateral bases.) Heart: Regular rate, Normal S1, Normal S2 Abdomen: Normal bowel sounds, Soft, No tenderness Extremities: No clubbing, No cyanosis, Other Neuro: Normal speech, Strength at 5/5 X4 ext, Cranial nerves 3-12 NL Psych/Mental Status: Mood NL, Other All Results(Lab/Rad) Laboratory Tests Test 11/14/18 05:10 White Blood Count 18.5 10^3/uL Red Blood Count 3.94 10^6/uL Hemoglobin 12.3 g/dL Hematocrit 37.7 % Mean Corpuscular Volume 95.7 fL Mean Corpuscular Hemoglobin 31.2 pg Mean Corpuscular Hemoglobin Concent 32.6 g/dL Red Cell Distribution Width 14.6 % Platelet Count 164 10^3/uL Mean Platelet Volume 9.9 fL Neutrophils (%) (Auto) 69.9 % Lymphocytes (%) (Auto) 20.3 % Monocytes (%) (Auto) 9.7 % Neutrophils # (Auto) 13.0 10^3/uL Lymphocytes # (Auto) 3.8 10^3/uL Monocytes # (Auto) 1.8 10^3/uL Eosinophils % 0.0 % Basophils % 0.1 % Basophils # 0.0 10^3/uL Eosinophil Count 0.0 10^3/uL Sodium Level 141 mmol/L Potassium Level 3.6 mmol/L Chloride Level 103.0 mmol/L Carbon Dioxide Level 25.6 mmol/L Anion Gap 16.0 Blood Urea Nitrogen 22 mg/dL Creatinine 1.34 mg/dL Estimated GFR () 46.4 BUN/Creatinine Ratio 16.0 Glucose Level 128 mg/dL Hemoglobin A1c 4.9 % Calcium Level 8.9 mg/dL Total Bilirubin 0.3 mg/dL Aspartate Amino Transf (AST/SGOT) 25 U/L Alanine Aminotransferase (ALT/SGPT) 13 U/L Alkaline Phosphatase 58 U/L Total Creatine Kinase 121 U/L Total Protein 7.5 g/dL Albumin 2.7 g/dL Globulin 4.8 Triglycerides Level 78 mg/dL Cholesterol Level 198 mg/dL LDL Cholesterol, Calculated 142.4 VLDL Cholesterol 15.6 HDL Cholesterol 40 mg/dL Cholesterol Ratio (LDL/HDL) 4.954416 Current Medications Medications (Trade) Dose Ordered Sig/Nj Route PRN Reason Start Time Stop Time Status Last Admin Dose Admin Dexamethasone Sodium Phosphate (Decadron) 4 mg STAT STAT IH 11/13/18 17:39 11/13/18 17:41 DC 11/13/18 17:45 Albuterol/ Ipratropium (Duoneb 0.5 Mg-3 Mg/3 ml Soln) 3 ml STAT STAT IH 11/13/18 17:39 11/13/18 17:41 DC 11/13/18 17:45 Albuterol/ Ipratropium (Duoneb 0.5 Mg-3 Mg/3 ml Soln) 3 ml STK-MED ONCE IH 11/13/18 17:39 11/13/18 17:41 DC Dexamethasone Sodium Phosphate (Decadron) 4 mg STK-MED ONCE .ROUTE 11/13/18 17:39 11/13/18 17:41 DC Furosemide (Lasix) 40 mg STAT STAT IV 11/13/18 17:41 11/13/18 17:42 DC 11/13/18 22:01 Ondansetron HCl (Zofran) 4 mg STAT STAT IV 11/13/18 17:52 11/13/18 17:53 DC 11/13/18 18:45 Ondansetron HCl (Zofran) 4 mg STK-MED ONCE .ROUTE 11/13/18 18:42 11/13/18 18:44 DC Piperacillin Sod/ Tazobactam Sod 3.375 gm/Sodium Chloride 100 ml @ 100 mls/hr Q6H IV 11/13/18 19:00 11/13/18 21:34 DC 11/13/18 19:00 Sodium Chloride 1,000 ml @ 100 mls/hr Q10H IV 11/13/18 19:00 12/13/18 18:59 11/13/18 22:01 Piperacillin/ Tazobactam/ Dextrose (Zosyn 3.375 Gm/ 50 ml) 3.375 gm Q6 IV 11/14/18 00:00 12/14/18 00:00 11/14/18 17:31 Furosemide (Lasix) 40 mg STK-MED ONCE .ROUTE 11/13/18 21:23 11/13/18 21:25 DC Piperacillin Sod/ Tazobactam Sod (Zosyn 3.375 Gram Vial) 3.375 gm STK-MED ONCE IV 11/13/18 21:23 11/13/18 21:25 DC Sodium Chloride 100 ml @ ud STK-MED ONCE IV 11/13/18 21:24 11/13/18 21:25 DC Acetaminophen (Tylenol) 1,000 mg Q6HR PRN PO PAIN 11/13/18 22:00 11/14/18 00:31 DC Acetaminophen (Tylenol) 1,000 mg Q6H PRN PO PAIN MILD 11/14/18 00:00 12/14/18 00:00 Ondansetron HCl (Zofran) 4 mg Q4H PRN IV NAUSEA / VOMITING 11/14/18 00:00 12/14/18 00:00 Pantoprazole Sodium (Protonix) 40 mg DAILY PO 11/14/18 09:00 12/14/18 08:59 Tramadol HCl (Ultram) 50 mg Q4HR PRN PO PAIN 11/14/18 00:00 12/14/18 00:00 Sodium Chloride 100 ml @ ud STK-MED ONCE IV 11/14/18 04:22 11/14/18 04:24 DC Piperacillin Sod/ Tazobactam Sod (Zosyn 3.375 Gram Vial) 3.375 gm STK-MED ONCE IV 11/14/18 04:22 11/14/18 04:24 DC Phenol/Menthol (Chloraseptic) 1 sprays PRN PRN MM PAIN 11/14/18 10:00 12/14/18 09:59 Sodium Chloride 100 ml @ ud STK-MED ONCE IV 11/14/18 17:29 11/14/18 17:31 DC Piperacillin Sod/ Tazobactam Sod (Zosyn 3.375 Gram Vial) 3.375 gm STK-MED ONCE IV 11/14/18 17:29 11/14/18 17:31 DC Course Sepsis Screening Results: Posi: POSITIVE Sepsis Qualifier/Stage: SEPSIS RISK Duration or Total Time Spent w: 2 HRS Vitals & review Data Vital Sign - Last 24 Hours 11/13/18 11/13/18 11/13/18 11/13/18 17:33 17:33 17:43 17:46 Temp 101.7 101.2 101.2 101.7 101.2 101.2 Pulse 106 102 102 109 Resp 32 32 32 26 B/P (MAP) 149/104 (119) Pulse Ox 92 92 93 O2 Delivery Nasal Canula Nasal Canula 11/13/18 17:47 Pulse 115 Resp 26 Pulse Ox 93 Laboratory Tests Test 11/13/18 18:00 White Blood Count 16.1 10^3/uL Red Blood Count 4.66 10^6/uL Hemoglobin 14.5 g/dL Hematocrit 44.2 % Mean Corpuscular Volume 94.8 fL Mean Corpuscular Hemoglobin 31.1 pg Mean Corpuscular Hemoglobin Concent 32.8 g/dL Red Cell Distribution Width 14.7 % Platelet Count 179 10^3/uL Mean Platelet Volume 10.1 fL Neutrophils (%) (Auto) 75.4 % Lymphocytes (%) (Auto) 15.1 % Monocytes (%) (Auto) 9.1 % Neutrophils # (Auto) 12.2 10^3/uL Lymphocytes # (Auto) 2.4 10^3/uL Monocytes # (Auto) 1.5 10^3/uL Absolute Immature Granulocyte (auto 0.03 10^3 u/L Eosinophils % 0.0 % Basophils % 0.2 % Basophils # 0.0 10^3/uL Eosinophil Count 0.0 10^3/uL Prothrombin Time 10.5 SEC Prothrombin Time INR (Non-Therap) 1.1 Activated Partial Thromboplast Time 26.3 SEC D-Dimer 2.14 mg/L Sodium Level 138 mmol/L Potassium Level 3.7 mmol/L Chloride Level 99.0 mmol/L Carbon Dioxide Level 22.9 mmol/L Anion Gap 19.8 Blood Urea Nitrogen 18 mg/dL Creatinine 1.30 mg/dL Estimated GFR () 48.1 BUN/Creatinine Ratio 13.0 Glucose Level 158 mg/dL Calcium Level 9.6 mg/dL Total Bilirubin 0.4 mg/dL Aspartate Amino Transf (AST/SGOT) 28 U/L Alanine Aminotransferase (ALT/SGPT) 16 U/L Alkaline Phosphatase 84 U/L Total Creatine Kinase 73 U/L Troponin I 0.04 ng/mL Pro-B-Type Natriuretic Peptide 1331 pg/mL Total Protein 8.9 g/dL Albumin 3.3 g/dL Globulin 5.6 Percent Immature Gran (Cell Imm) 0.20 % Helicobacter pylori Screen NEGATIVE Current Medications Medications (Trade) Dose Ordered Sig/Nj PRN Reason Start Time Stop Time Status Last Admin Piperacillin Sod/ Tazobactam Sod 3.375 gm/Sodium Chloride 100 ml @ 100 mls/hr Q6H 11/13/18 19:00 12/13/18 18:59 Sepsis Infection Criteria Pres: Documented Infection LEVEL 1 SEPSIS INFECTION CRITE: ABX Therapy, Cough/Shortness of Breath, Fever/ Chills LEVEL 2-SIRS (LIST ALL THAT AP: None/Not assessed Respiratory Evidence: Need for O2 to keep>90% O2 Sat by Pulse Oximetry: 97 Oxygen Flow Rate: 3.00 Assessment/Plan Assessment/Plan Problems: (1) Altered mental status Assessment & Plan: Much improved on antibiotics. Likely secondary to tract infection on top of her chronic dementia ICD Code: R41.82 - Altered mental status, unspecified SNOMED: 681891913 (2) Diastolic CHF, acute on chronic Status: Chronic Assessment & Plan: has likely developed mild pulmonary edema from IV fluids. Ejection fraction may have worsened. Recheck echocardiogram ICD Code: I50.33 - Acute on chronic diastolic (congestive) heart failure SNOMED: 71043648, 052216239 (3) Hypertension Permanent Comment: Well controlled. Patient's blood pressures are mostly 120s- 140s/70s-80s. There are a few elevated BP's in the 150s and 160s; however these blood pressures are outliers. - Continue Lopressor 12.5 mg PO BID. Unclear what the rationale for this medication choice is since at this dose Lopressor is unlikely to affect the blood pressure. Perhaps she has some other cardiac history and perhaps this patient has this medication for a benefit other than blood pressure control. - Amlodipine was held at admission, and the patient has not required this medication. Last Edited By: Jonny Boykin MD on Jan 12, 2017 12:36 Onset Date: Unknown Status: Chronic ICD Code: I10 - Essential (primary) hypertension SNOMED: 64111942 (4) UTI (urinary tract infection) Status: Acute Assessment & Plan: based on culture and sensitivity, Switch to meropenem. ICD Code: N39.0 - Urinary tract infection, site not specified SNOMED: 87385603 (5) Dehydration Status: Acute Assessment & Plan: much improved with IV fluid. ICD Code: E86.0 - Dehydration SNOMED: 21502022 (6) Dementia Status: Chronic Assessment & Plan: Likely at baseline ICD Code: F03.90 - Unspecified dementia without behavioral disturbance SNOMED: 05914789 AROLDO LEW MD Nov 15, 2018 11:08
[2018-11-15 11:28] LABS: ABG PCO2 37.3 mmHg (35.0-45.0); BE(B) 3.7 mmol/L (-2.0-2.0); HCO3act 27.2 mmol/L (22.0-26.0); pO2 66.6 mmHg (75.0-100.0)
--- NOTE | 2018-11-15 12:00 | NUR ---
Pt REFUSED TO CHANGE POSITION Q 2 HR STATES " I AM GOOD LIKE THIS", STATES "FEELING GOOD".
[2018-11-15 12:21] VITALS: BP 159/85
--- NOTE | 2018-11-15 12:46 | NUR ---
NOTIFIED DR SHAFER ABOUT LAB BNP 1755 AND ABG RESULT NO NEW ORDRE AT THIS TIME.
--- NOTE | 2018-11-15 13:23 | DIREP ---
PROCEDURE:CHEST 1 VIEW COMPARISON:[facility], CR, XRAY CHEST 2 VWS, 08/09/2017, 04:40 PM. [facility], CR, XRAY CHEST SINGLE VW, 11/13/2018, 05:17 PM. INDICATIONS:sob FINDINGS: LUNGS/PLEURA:Coarse linear densities are again noted within both lungs consistent with chronic interstitial disease/pulmonary fibrosis. No acute alveolar infiltrate is seen. No change is noted since 11/13/2018 or 08/09/2017. VASCULATURE:Normal. Unremarkable pulmonary vasculature. Atherosclerotic disease of the thoracic aorta is again noted. CARDIAC:Normal. No cardiac silhouette abnormality or cardiomegaly. MEDIASTINUM:Normal. No visible mass or adenopathy. BONES:Normal. No fracture or visible bony lesion. OTHER:Negative. CONCLUSION: 1. No acute alveolar infiltrate is demonstrated. There is no evidence of pulmonary edema. 2. Chronic interstitial disease/pulmonary fibrosis without change since 08/09/2017. Dictated by: Sesar Cantu M.D. on 11/15/2018 at 01:21 PM
--- NOTE | 2018-11-15 13:32 | NUR ---
DISCHARGE PLANNING [facility] WILL PICK PATIENT UP AFTER 10 AM ON SUNDAY THE . IF THERE ARE ANY CHANGES IN PATIENT D/C LET [facility] KNOW AT [phone].
[2018-11-15] MEDS: LASIX IV SCH ×2 (13:35→18:54)
--- NOTE | 2018-11-15 14:14 | NUR ---
DISCHARGE PLAN CASE MANAGEMENT SPOKE WITH [facility] AND THEY DO PROVIDE SPEECH THERAPY. CM NOTIFIED DR. LEW AND VENESSA REDDY YARN MAN NURSE OF SUNDAY PICKUP TIME AFTER 10:00AM.
[2018-11-15] MEDS: DUONEB 0.5 MG-3 MG/3 ML SOLN IH SCH ×2 (14:17→21:43)
[2018-11-15 16:30] VITALS: BP 120/87
[2018-11-15 17:28] LABS: CALCIUM 8.6 mg/dL (8.4-10.5); CARBON DIOXIDE 27.8 mmol/L (20.0-32)
--- NOTE | 2018-11-15 17:30 | NUR ---
status this nurse called in pTs room by daughter, stating pT c/o of difficulty breathing.vs bp 140/96, p 110, RR 24, o2sat in 4 lit nc 91 %, Pt SLEEPY WITH EYES CLOSE RESPONDED WITH VERBAL STIMULI, POSITION CHANGED TO LEFT.
[2018-11-15] MEDS ORDERED: KCL 20MEQ/100ML 200 ML IV ONE (18:04)
[2018-11-15] MEDS ORDERED: KCL 20MEQ/100ML 100 ML IV STA (18:10)
--- NOTE | 2018-11-15 18:25 | NUR ---
POTASSIUM 2.9, NOTIFIED DR LEW BY CHANGE NURSE VENESSA RN, RECEIVED AN ORDER TO ADMINISTER STAT 40 MEQ IV POTASSIUM OVER 4 HOURS AND 10 MG POTASSIUM TID INSTEAD OF BID. SINCE 40 MEQ BAG NOT AVAILABLE IN THE OMNICELL ONLY 20 MEQ BAG AVAILABLE , CHARGE NURSE VENESSA RN, JUST PLACED ORDER FOR 2 BAG OF 20 MEQ OF POTASSIUM IV EACH OVER 2 HRS WITH CONSULT WITH CHARGE NURSE VENESSA GARCIA. , DAUGHTER OF Pt NOTIFIED, SHE VERBALIZED UNDERSTANDING.
--- NOTE | 2018-11-15 19:05 | NUR ---
Report Received report from RADHA Duron
--- NOTE | 2018-11-15 19:17 | NUR ---
shift change report bedside report givent to night nurse mayte driver.
[2018-11-15 20:00] VITALS: BP 135/92
[2018-11-15] MEDS: KLOR-CON 10 PO SCH (20:03)
[2018-11-15] MEDS: MEROPENEM 500 MG in NS 100ML 100 ML IV SCH (20:03)
[2018-11-16 01:00] VITALS: BP 132/70
[2018-11-16] MEDS: LASIX IV SCH ×4 (01:13→18:17)
[2018-11-16 04:29] VITALS: BP 148/82
[2018-11-16] MEDS: MEROPENEM 500 MG in NS 100ML 100 ML IV SCH ×3 (04:31→20:24)
[2018-11-16 05:28] LABS: HEMOGLOBIN 13.6 g/dL (12.0-15.0); MEAN CELL HGB 30.6 pg (26-34); MEAN CELL HGB CONCENTRATION 32.5 g/dL (33-37); MEAN CORP VOLUME 94.2 fL (78-100); MEAN PLATELET VOLUME 9.9 fL (7.8-11.0); RED CELL DISTRIBUTION WIDTH 14.7 % (11.5-14.5); WHITE BLOOD CELL 8.5 10^3/uL (4.5-11.0)
[2018-11-16] MEDS: DUONEB 0.5 MG-3 MG/3 ML SOLN IH SCH ×3 (05:32→21:15)
[2018-11-16 05:55] LABS: CALCIUM 8.6 mg/dL (8.4-10.5); CARBON DIOXIDE 26.7 mmol/L (20.0-32)
--- NOTE | 2018-11-16 06:29 | NUR ---
Report Report given to RADHA Duron
[2018-11-16] MEDS: NS 1000ML 1,000 ML SCH ×2 (07:00→17:00)
[2018-11-16] MEDS: PROTONIX PO SCH (08:24)
[2018-11-16] MEDS: KLOR-CON 10 PO SCH ×3 (08:24→20:25)
[2018-11-16 09:19] VITALS: BP 166/95
[2018-11-16] MEDS: TYLENOL PO PRN (10:05)
[2018-11-16 14:37] VITALS: BP 135/76
[2018-11-16] MEDS ORDERED: KCL 20MEQ/100ML 100 ML IV ONE ×3 (18:00→22:29)
--- NOTE | 2018-11-16 19:12 | NUR ---
SHIFT CHANGE REPORT GIVEN TO NIGHT NURSE CORINE ANDERSON.
--- NOTE | 2018-11-16 19:15 | NUR ---
Report Received report from RADHA Duron
[2018-11-16 20:10] VITALS: BP 160/98
--- NOTE | 2018-11-16 23:14 | PRM.PN ---
Subjective Subjective Date: Nov 16, 2018 Time: 23:12 Subjective More alert. Less confusion. Eating better. Strength slowly improving. VTE VTE Risk Total Score: 4 VTE Risk Score VTE Risk: Score 0-1 = Low Risk (Aggressive mobilization; early ambulation; no VTE prophylaxis required) Score 2: Moderate Risk (Intermittent/Pneumatic Compression Device OR Lovenox/Heparin/Coumadin) Score 3-4: High Risk (Intermittent/Pneumatic Compression Device AND Lovenox/Heparin/Coumadin) Score > or =5: Highest Risk (Intermittent/Pneumatic Compression Device AND Lovenox/Heparin/Coumadin) Antico:Hep/LMWH/Coum/Xarelto: No Mechanical device ordered: No Review of Systems Constitutional: Weakness Respiratory: No: Cough, Dry, Shortness of breath, SOB with excertion, Wheezing , Hemoptysis, Pleuritic Pain, Sputum, Wheezing, Other Cardiovascular: Edema; No: Chest Pain, Palpitations, Orthopnea, Paroxysmal Noc. Dyspnea, Lt Headedness, Other Genitourinary: Dysuria, Frequency Neurological: Weakness, Incoordination, Change in speech, Confusion Allergies: Coded Allergies: No Known Drug Allergies (Verified Allergy, Unknown, 05/01/16) Scheduled Acetaminophen (Tylenol Extra Strength), 500 MG PO BID, (Reported) Amlodipine Besylate (Norvasc), 1 TAB PO DAILY, (Reported) Buspirone Hcl (Buspirone Hcl), 1 TAB PO TID, (Reported) Donepezil Hcl (Aricept), 10 MG PO HS Lactobacillus Acidophilus (Acidophilus), 2 EACH PO BID, (Reported) Levothyroxine Sodium (Levothyroxine Sodium), 1 TAB PO DAILY, (Reported) Loratadine (Claritin), 1 TAB PO DAILY, (Reported) Memantine Hcl (Namenda), 1 TAB PO BID, (Reported) Metoprolol Tartrate 25MG (Lopresser 25MG), 12.5 MG PO BID Risperidone (Risperdal), 0.25 MG PO HS Sertraline Hcl (Zoloft), 200 MG PO DAILY, (Reported) Triamcinolone Acetonide (Nasacort), 10.8 ML NS DAILY, (Reported) Discontinued Medications Amoxicillin/Potassium Clav (Augmentin 875-125 Tablet), 1 EACH PO BID Discontinued Reason: No Longer Taking Buspirone Hcl (Buspirone Hcl), 7.5 MG PO TID, (Reported) Discontinued Reason: No Longer Taking Furosemide (Furosemide), 40 MG PO DAILY24 Discontinued Reason: No Longer Taking Levothyroxine Sodium (Levothyroxine Sodium), 1 TAB PO DAILY Discontinued Reason: No Longer Taking Levothyroxine Sodium (Synthroid), 1 TAB PO DAILY, (Reported) Discontinued Reason: Prescription changed Potassium Chloride (Klor-Con 10), 20 MEQ PO DAILY24 Discontinued Reason: No Longer Taking Sertraline Hcl (Zoloft), 100 MG PO DAILY Discontinued Reason: No Longer Taking Objective Vitals and I/O Vital Sign - Last 24 Hours 11/13/18 11/13/18 11/14/18 11/14/18 23:35 23:35 01:13 05:35 Temp 99.1 99.2 99.1 99.2 Pulse 110 98 87 Resp 26 26 18 20 B/P (MAP) 135/86 (102) 117/56 (76) Pulse Ox 90 90 96 92 O2 Delivery Nasal Cannula Nasal Canula Nasal Canula O2 Flow Rate 3.00 3.00 3.00 11/14/18 11/14/18 11/14/18 11/14/18 09:33 09:45 10:05 10:21 Temp 98.3 98.3 Pulse 70 91 91 Resp 16 20 20 B/P (MAP) 140/58 (85) Pulse Ox 94 93 93 O2 Delivery Nasal Canula Nasal Cannula Nasal Cannula Nasal Cannula O2 Flow Rate 3.00 3.00 3.00 3.00 FiO2 32 32 11/14/18 11/14/18 11/14/18 11/14/18 11:45 16:25 20:03 20:18 Temp 99.8 98.8 99.8 98.8 Pulse 76 88 74 80 Resp 18 2 18 18 B/P (MAP) 114/82 (93) 124/65 (84) 144/58 (86) Pulse Ox 98 94 95 96 O2 Delivery Nasal Canula Nasal Canula Nasal Canula Nasal Cannula O2 Flow Rate 3.00 3.00 3.00 3.00 FiO2 32 11/14/18 21:42 O2 Delivery Nasal Cannula O2 Flow Rate 3.00 Intake and Output 11/13/18 11/13/18 11/14/18 15:00 23:00 07:00 Intake Total 0 ml Output Total 650 ml Balance -650 ml General: Alert, Cooperative, No acute distress, Other ( chronic confusion.) HEENT: PERRLA, EOMI Lungs: Normal air movement, Other ( Mild wheezing bilateral bases.) Heart: Regular rate, Normal S1, Normal S2 Abdomen: Normal bowel sounds, Soft, No tenderness Extremities: No clubbing, No cyanosis, Other Neuro: Normal speech, Strength at 5/5 X4 ext, Cranial nerves 3-12 NL Psych/Mental Status: Mood NL, Other All Results(Lab/Rad) Laboratory Tests Test 11/14/18 05:10 White Blood Count 18.5 10^3/uL Red Blood Count 3.94 10^6/uL Hemoglobin 12.3 g/dL Hematocrit 37.7 % Mean Corpuscular Volume 95.7 fL Mean Corpuscular Hemoglobin 31.2 pg Mean Corpuscular Hemoglobin Concent 32.6 g/dL Red Cell Distribution Width 14.6 % Platelet Count 164 10^3/uL Mean Platelet Volume 9.9 fL Neutrophils (%) (Auto) 69.9 % Lymphocytes (%) (Auto) 20.3 % Monocytes (%) (Auto) 9.7 % Neutrophils # (Auto) 13.0 10^3/uL Lymphocytes # (Auto) 3.8 10^3/uL Monocytes # (Auto) 1.8 10^3/uL Eosinophils % 0.0 % Basophils % 0.1 % Basophils # 0.0 10^3/uL Eosinophil Count 0.0 10^3/uL Sodium Level 141 mmol/L Potassium Level 3.6 mmol/L Chloride Level 103.0 mmol/L Carbon Dioxide Level 25.6 mmol/L Anion Gap 16.0 Blood Urea Nitrogen 22 mg/dL Creatinine 1.34 mg/dL Estimated GFR () 46.4 BUN/Creatinine Ratio 16.0 Glucose Level 128 mg/dL Hemoglobin A1c 4.9 % Calcium Level 8.9 mg/dL Total Bilirubin 0.3 mg/dL Aspartate Amino Transf (AST/SGOT) 25 U/L Alanine Aminotransferase (ALT/SGPT) 13 U/L Alkaline Phosphatase 58 U/L Total Creatine Kinase 121 U/L Total Protein 7.5 g/dL Albumin 2.7 g/dL Globulin 4.8 Triglycerides Level 78 mg/dL Cholesterol Level 198 mg/dL LDL Cholesterol, Calculated 142.4 VLDL Cholesterol 15.6 HDL Cholesterol 40 mg/dL Cholesterol Ratio (LDL/HDL) 4.412839 Current Medications Medications (Trade) Dose Ordered Sig/Nj Route PRN Reason Start Time Stop Time Status Last Admin Dose Admin Dexamethasone Sodium Phosphate (Decadron) 4 mg STAT STAT IH 11/13/18 17:39 11/13/18 17:41 DC 11/13/18 17:45 Albuterol/ Ipratropium (Duoneb 0.5 Mg-3 Mg/3 ml Soln) 3 ml STAT STAT IH 11/13/18 17:39 11/13/18 17:41 DC 11/13/18 17:45 Albuterol/ Ipratropium (Duoneb 0.5 Mg-3 Mg/3 ml Soln) 3 ml STK-MED ONCE IH 11/13/18 17:39 11/13/18 17:41 DC Dexamethasone Sodium Phosphate (Decadron) 4 mg STK-MED ONCE .ROUTE 11/13/18 17:39 11/13/18 17:41 DC Furosemide (Lasix) 40 mg STAT STAT IV 11/13/18 17:41 11/13/18 17:42 DC 11/13/18 22:01 Ondansetron HCl (Zofran) 4 mg STAT STAT IV 11/13/18 17:52 11/13/18 17:53 DC 11/13/18 18:45 Ondansetron HCl (Zofran) 4 mg STK-MED ONCE .ROUTE 11/13/18 18:42 11/13/18 18:44 DC Piperacillin Sod/ Tazobactam Sod 3.375 gm/Sodium Chloride 100 ml @ 100 mls/hr Q6H IV 11/13/18 19:00 11/13/18 21:34 DC 11/13/18 19:00 Sodium Chloride 1,000 ml @ 100 mls/hr Q10H IV 11/13/18 19:00 12/13/18 18:59 11/13/18 22:01 Piperacillin/ Tazobactam/ Dextrose (Zosyn 3.375 Gm/ 50 ml) 3.375 gm Q6 IV 11/14/18 00:00 12/14/18 00:00 11/14/18 17:31 Furosemide (Lasix) 40 mg STK-MED ONCE .ROUTE 11/13/18 21:23 11/13/18 21:25 DC Piperacillin Sod/ Tazobactam Sod (Zosyn 3.375 Gram Vial) 3.375 gm STK-MED ONCE IV 11/13/18 21:23 11/13/18 21:25 DC Sodium Chloride 100 ml @ STK-MED ONCE IV 11/13/18 21:24 11/13/18 21:25 DC Acetaminophen (Tylenol) 1,000 mg Q6HR PRN PO PAIN 11/13/18 22:00 11/14/18 00:31 DC Acetaminophen (Tylenol) 1,000 mg Q6H PRN PO PAIN MILD 11/14/18 00:00 12/14/18 00:00 Ondansetron HCl (Zofran) 4 mg Q4H PRN IV NAUSEA / VOMITING 11/14/18 00:00 12/14/18 00:00 Pantoprazole Sodium (Protonix) 40 mg DAILY PO 11/14/18 09:00 12/14/18 08:59 Tramadol HCl (Ultram) 50 mg Q4HR PRN PO PAIN 11/14/18 00:00 12/14/18 00:00 Sodium Chloride 100 ml @ STK-MED ONCE IV 11/14/18 04:22 11/14/18 04:24 DC Piperacillin Sod/ Tazobactam Sod (Zosyn 3.375 Gram Vial) 3.375 gm STK-MED ONCE IV 11/14/18 04:22 11/14/18 04:24 DC Phenol/Menthol (Chloraseptic) 1 sprays PRN PRN MM PAIN 11/14/18 10:00 12/14/18 09:59 Sodium Chloride 100 ml @ STK-MED ONCE IV 11/14/18 17:29 11/14/18 17:31 DC Piperacillin Sod/ Tazobactam Sod (Zosyn 3.375 Gram Vial) 3.375 gm STK-MED ONCE IV 11/14/18 17:29 11/14/18 17:31 DC Course Sepsis Screening Results: Posi: POSITIVE Sepsis Qualifier/Stage: SEPSIS RISK Duration or Total Time Spent w: 2 HRS Vitals & review Data Vital Sign - Last 24 Hours 11/13/18 11/13/18 11/13/18 11/13/18 17:33 17:33 17:43 17:46 Temp 101.7 101.2 101.2 101.7 101.2 101.2 Pulse 106 102 102 109 Resp 32 32 32 26 B/P (MAP) 149/104 (119) Pulse Ox 92 92 93 O2 Delivery Nasal Canula Nasal Canula 11/13/18 17:47 Pulse 115 Resp 26 Pulse Ox 93 Laboratory Tests Test 11/13/18 18:00 White Blood Count 16.1 10^3/uL Red Blood Count 4.66 10^6/uL Hemoglobin 14.5 g/dL Hematocrit 44.2 % Mean Corpuscular Volume 94.8 fL Mean Corpuscular Hemoglobin 31.1 pg Mean Corpuscular Hemoglobin Concent 32.8 g/dL Red Cell Distribution Width 14.7 % Platelet Count 179 10^3/uL Mean Platelet Volume 10.1 fL Neutrophils (%) (Auto) 75.4 % Lymphocytes (%) (Auto) 15.1 % Monocytes (%) (Auto) 9.1 % Neutrophils # (Auto) 12.2 10^3/uL Lymphocytes # (Auto) 2.4 10^3/uL Monocytes # (Auto) 1.5 10^3/uL Absolute Immature Granulocyte (auto 0.03 10^3 u/L Eosinophils % 0.0 % Basophils % 0.2 % Basophils # 0.0 10^3/uL Eosinophil Count 0.0 10^3/uL Prothrombin Time 10.5 SEC Prothrombin Time INR (Non-Therap) 1.1 Activated Partial Thromboplast Time 26.3 SEC D-Dimer 2.14 mg/L Sodium Level 138 mmol/L Potassium Level 3.7 mmol/L Chloride Level 99.0 mmol/L Carbon Dioxide Level 22.9 mmol/L Anion Gap 19.8 Blood Urea Nitrogen 18 mg/dL Creatinine 1.30 mg/dL Estimated GFR () 48.1 BUN/Creatinine Ratio 13.0 Glucose Level 158 mg/dL Calcium Level 9.6 mg/dL Total Bilirubin 0.4 mg/dL Aspartate Amino Transf (AST/SGOT) 28 U/L Alanine Aminotransferase (ALT/SGPT) 16 U/L Alkaline Phosphatase 84 U/L Total Creatine Kinase 73 U/L Troponin I 0.04 ng/mL Pro-B-Type Natriuretic Peptide 1331 pg/mL Total Protein 8.9 g/dL Albumin 3.3 g/dL Globulin 5.6 Percent Immature Gran (Cell Imm) 0.20 % Helicobacter pylori Screen NEGATIVE Current Medications Medications (Trade) Dose Ordered Sig/Nj PRN Reason Start Time Stop Time Status Last Admin Piperacillin Sod/ Tazobactam Sod 3.375 gm/Sodium Chloride 100 ml @ 100 mls/hr Q6H 11/13/18 19:00 12/13/18 18:59 Sepsis Infection Criteria Pres: Documented Infection LEVEL 1 SEPSIS INFECTION CRITE: ABX Therapy, Cough/Shortness of Breath, Fever/ Chills LEVEL 2-SIRS (LIST ALL THAT AP: None/Not assessed Respiratory Evidence: Need for O2 to keep>90% O2 Sat by Pulse Oximetry: 95 Oxygen Flow Rate: 4.00 Assessment/Plan Assessment/Plan Problems: (1) Infectious encephalopathy Assessment & Plan: slowly improving. ICD Code: G93.49 - Other encephalopathy; B99.9 - Unspecified infectious disease SNOMED: 37161838, 17730505 (2) CKD stage G3b/A1, GFR 30-44 and albumin creatinine ratio <30 mg/g Permanent Comment: Based on a nominal chronic SCr ~1.3, this patient has CKD Stg 3. Current SCr = 1.57, but her BUN was also elevated at 30 -- she is dehydrated. Last Edited By: Jonny Boykin MD on Jan 12, 2017 11:48 Status: Acute Assessment & Plan: Cont IV resus. ICD Code: N18.3 - Chronic kidney disease, stage 3 (moderate) SNOMED: 114756652, 733804382 (3) UTI (urinary tract infection) Status: Acute Assessment & Plan: Continue IV Abx. Prob back to snf on Sunday. ICD Code: N39.0 - Urinary tract infection, site not specified SNOMED: 92044948 AROLDO LEW MD Nov 16, 2018 23:14
[2018-11-17] MEDS: LASIX IV SCH ×3 (00:05→12:00)
[2018-11-17] MEDS: TYLENOL PO PRN (00:05)
[2018-11-17 00:18] VITALS: BP 127/80
[2018-11-17] MEDS: NS 1000ML 1,000 ML SCH ×2 (03:00→13:00)
[2018-11-17] MEDS: MEROPENEM 500 MG in NS 100ML 100 ML IV SCH ×2 (03:58→10:18)
[2018-11-17 04:08] VITALS: BP 143/86
[2018-11-17] MEDS: DUONEB 0.5 MG-3 MG/3 ML SOLN IH SCH ×2 (05:45→13:15)
--- NOTE | 2018-11-17 07:21 | NUR ---
REPORT RECEIVED REPORT, ASSUMED CARE FOR PATIENT AT THIS TIME.
[2018-11-17] MEDS: KLOR-CON 10 PO SCH (10:17)
[2018-11-17] MEDS: PROTONIX PO SCH (10:17)
[2018-11-17 10:21] VITALS: BP 134/89
--- NOTE | 2018-11-17 10:32 | NUR ---
PATIENT ATE NONE OF HER BREAKFAST THIS MORNING. SHE STATED "SHE'S JUST NOT HUNGRY." OFFERED TO ASSIST WITH EATING, PATIENT DENIED. PATIENT DENIES UNMET NEEDS. CALL LIGHT IN REACH, BED IS LOW AND LOCKED. WILL CONTINUE TO MONITOR.
[2018-11-17] MEDS ORDERED: AMOX1TAB63 PO (11:21)
[2018-11-17] MEDS ORDERED: MEGE625O PO (11:21)
--- NOTE | 2018-11-17 13:28 | NUR ---
CONTACTED [facility] TO NOTIFIY OF DISCHARGE AND ARRANGE TRANSPORTATION.
[2018-11-17] MEDS ORDERED: PRED20TA PO (13:32)
--- NOTE | 2018-11-17 13:49 | PRM.PN ---
Subjective Subjective Date: Nov 17, 2018 Time: 13:49 Subjective Doing better today. Continues to increase strength. Daughter notices some wheezing audibly. Still not wanting to eat a lot but doing better than previous days and eating about the same as at SNF. Level of alertness c/w SNF. VTE VTE Risk Total Score: 4 VTE Risk Score VTE Risk: Score 0-1 = Low Risk (Aggressive mobilization; early ambulation; no VTE prophylaxis required) Score 2: Moderate Risk (Intermittent/Pneumatic Compression Device OR Lovenox/Heparin/Coumadin) Score 3-4: High Risk (Intermittent/Pneumatic Compression Device AND Lovenox/Heparin/Coumadin) Score > or =5: Highest Risk (Intermittent/Pneumatic Compression Device AND Lovenox/Heparin/Coumadin) Antico:Hep/LMWH/Coum/Xarelto: No Mechanical device ordered: No Review of Systems Constitutional: Weakness Respiratory: No: Cough, Dry, Shortness of breath, SOB with excertion, Wheezing , Hemoptysis, Pleuritic Pain, Sputum, Wheezing, Other Cardiovascular: Edema; No: Chest Pain, Palpitations, Orthopnea, Paroxysmal Noc. Dyspnea, Lt Headedness, Other Genitourinary: No Dysuria, No Frequency Neurological: Weakness, Incoordination, Change in speech, Confusion Allergies: Coded Allergies: No Known Drug Allergies (Verified Allergy, Unknown, 05/01/16) Scheduled Acetaminophen (Tylenol Extra Strength), 500 MG PO BID, (Reported) Amlodipine Besylate (Norvasc), 1 TAB PO DAILY, (Reported) Amoxicillin/Potassium Clav (Augmentin 875-125 Tablet), 1 EACH PO BID Buspirone Hcl (Buspirone Hcl), 1 TAB PO TID, (Reported) Donepezil Hcl (Aricept), 10 MG PO HS Lactobacillus Acidophilus (Acidophilus), 2 EACH PO BID, (Reported) Levothyroxine Sodium (Levothyroxine Sodium), 1 TAB PO DAILY, (Reported) Loratadine (Claritin), 1 TAB PO DAILY, (Reported) Megestrol Acetate (Megace Es), 625 MG PO BID Memantine Hcl (Namenda), 1 TAB PO BID, (Reported) Metoprolol Tartrate 25MG (Lopresser 25MG), 12.5 MG PO BID Prednisone (Prednisone), 2 TAB PO DAILY, (Reported) Risperidone (Risperdal), 0.25 MG PO HS Sertraline Hcl (Zoloft), 200 MG PO DAILY, (Reported) Triamcinolone Acetonide (Nasacort), 10.8 ML NS DAILY, (Reported) Discontinued Medications Amoxicillin/Potassium Clav (Augmentin 875-125 Tablet), 1 EACH PO BID Discontinued Reason: No Longer Taking Buspirone Hcl (Buspirone Hcl), 7.5 MG PO TID, (Reported) Discontinued Reason: No Longer Taking Furosemide (Furosemide), 40 MG PO DAILY24 Discontinued Reason: No Longer Taking Levothyroxine Sodium (Levothyroxine Sodium), 1 TAB PO DAILY Discontinued Reason: No Longer Taking Levothyroxine Sodium (Synthroid), 1 TAB PO DAILY, (Reported) Discontinued Reason: Prescription changed Potassium Chloride (Klor-Con 10), 20 MEQ PO DAILY24 Discontinued Reason: No Longer Taking Sertraline Hcl (Zoloft), 100 MG PO DAILY Discontinued Reason: No Longer Taking Objective Vitals and I/O Vital Sign - Last 24 Hours 11/13/18 11/13/18 11/14/18 11/14/18 23:35 23:35 01:13 05:35 Temp 99.1 99.2 99.1 99.2 Pulse 110 98 87 Resp 26 26 18 20 B/P (MAP) 135/86 (102) 117/56 (76) Pulse Ox 90 90 96 92 O2 Delivery Nasal Cannula Nasal Canula Nasal Canula O2 Flow Rate 3.00 3.00 3.00 11/14/18 11/14/18 11/14/18 11/14/18 09:33 09:45 10:05 10:21 Temp 98.3 98.3 Pulse 70 91 91 Resp 16 20 20 B/P (MAP) 140/58 (85) Pulse Ox 94 93 93 O2 Delivery Nasal Canula Nasal Cannula Nasal Cannula Nasal Cannula O2 Flow Rate 3.00 3.00 3.00 3.00 FiO2 32 32 11/14/18 11/14/18 11/14/18 11/14/18 11:45 16:25 20:03 20:18 Temp 99.8 98.8 99.8 98.8 Pulse 76 88 74 80 Resp 18 11 18 18 B/P (MAP) 114/82 (93) 124/65 (84) 144/58 (86) Pulse Ox 98 94 95 96 O2 Delivery Nasal Canula Nasal Canula Nasal Canula Nasal Cannula O2 Flow Rate 3.00 3.00 3.00 3.00 FiO2 32 11/14/18 21:42 O2 Delivery Nasal Cannula O2 Flow Rate 3.00 Intake and Output 11/13/18 11/13/18 11/14/18 15:00 23:00 07:00 Intake Total 0 ml Output Total 650 ml Balance -650 ml General: Alert, Cooperative, No acute distress, Other ( chronic confusion.) HEENT: PERRLA, EOMI Lungs: Normal air movement, Other (Very mild wheezing on expiration today.) Heart: Regular rate, Normal S1, Normal S2 Abdomen: Normal bowel sounds, Soft, No tenderness Extremities: No clubbing, No cyanosis, Other Neuro: Normal speech, Strength at 5/5 X4 ext, Cranial nerves 3-12 NL Psych/Mental Status: Mood NL, Other All Results(Lab/Rad) Laboratory Tests Test 11/14/18 05:10 White Blood Count 18.5 10^3/uL Red Blood Count 3.94 10^6/uL Hemoglobin 12.3 g/dL Hematocrit 37.7 % Mean Corpuscular Volume 95.7 fL Mean Corpuscular Hemoglobin 31.2 pg Mean Corpuscular Hemoglobin Concent 32.6 g/dL Red Cell Distribution Width 14.6 % Platelet Count 164 10^3/uL Mean Platelet Volume 9.9 fL Neutrophils (%) (Auto) 69.9 % Lymphocytes (%) (Auto) 20.3 % Monocytes (%) (Auto) 9.7 % Neutrophils # (Auto) 13.0 10^3/uL Lymphocytes # (Auto) 3.8 10^3/uL Monocytes # (Auto) 1.8 10^3/uL Eosinophils % 0.0 % Basophils % 0.1 % Basophils # 0.0 10^3/uL Eosinophil Count 0.0 10^3/uL Sodium Level 141 mmol/L Potassium Level 3.6 mmol/L Chloride Level 103.0 mmol/L Carbon Dioxide Level 25.6 mmol/L Anion Gap 16.0 Blood Urea Nitrogen 22 mg/dL Creatinine 1.34 mg/dL Estimated GFR () 46.4 BUN/Creatinine Ratio 16.0 Glucose Level 128 mg/dL Hemoglobin A1c 4.9 % Calcium Level 8.9 mg/dL Total Bilirubin 0.3 mg/dL Aspartate Amino Transf (AST/SGOT) 25 U/L Alanine Aminotransferase (ALT/SGPT) 13 U/L Alkaline Phosphatase 58 U/L Total Creatine Kinase 121 U/L Total Protein 7.5 g/dL Albumin 2.7 g/dL Globulin 4.8 Triglycerides Level 78 mg/dL Cholesterol Level 198 mg/dL LDL Cholesterol, Calculated 142.4 VLDL Cholesterol 15.6 HDL Cholesterol 40 mg/dL Cholesterol Ratio (LDL/HDL) 4.005370 Current Medications Medications (Trade) Dose Ordered Sig/Nj Route PRN Reason Start Time Stop Time Status Last Admin Dose Admin Dexamethasone Sodium Phosphate (Decadron) 4 mg STAT STAT IH 11/13/18 17:39 11/13/18 17:41 DC 11/13/18 17:45 Albuterol/ Ipratropium (Duoneb 0.5 Mg-3 Mg/3 ml Soln) 3 ml STAT STAT IH 11/13/18 17:39 11/13/18 17:41 DC 11/13/18 17:45 Albuterol/ Ipratropium (Duoneb 0.5 Mg-3 Mg/3 ml Soln) 3 ml STK-MED ONCE IH 11/13/18 17:39 11/13/18 17:41 DC Dexamethasone Sodium Phosphate (Decadron) 4 mg STK-MED ONCE .ROUTE 11/13/18 17:39 11/13/18 17:41 DC Furosemide (Lasix) 40 mg STAT STAT IV 11/13/18 17:41 11/13/18 17:42 DC 11/13/18 22:01 Ondansetron HCl (Zofran) 4 mg STAT STAT IV 11/13/18 17:52 11/13/18 17:53 DC 11/13/18 18:45 Ondansetron HCl (Zofran) 4 mg STK-MED ONCE .ROUTE 11/13/18 18:42 11/13/18 18:44 DC Piperacillin Sod/ Tazobactam Sod 3.375 gm/Sodium Chloride 100 ml @ 100 mls/hr Q6H IV 11/13/18 19:00 11/13/18 21:34 DC 11/13/18 19:00 Sodium Chloride 1,000 ml @ 100 mls/hr Q10H IV 11/13/18 19:00 12/13/18 18:59 11/13/18 22:01 Piperacillin/ Tazobactam/ Dextrose (Zosyn 3.375 Gm/ 50 ml) 3.375 gm Q6 IV 11/14/18 00:00 12/14/18 00:00 11/14/18 17:31 Furosemide (Lasix) 40 mg STK-MED ONCE .ROUTE 11/13/18 21:23 11/13/18 21:25 DC Piperacillin Sod/ Tazobactam Sod (Zosyn 3.375 Gram Vial) 3.375 gm STK-MED ONCE IV 11/13/18 21:23 11/13/18 21:25 DC Sodium Chloride 100 ml @ ud STK-MED ONCE IV 11/13/18 21:24 11/13/18 21:25 DC Acetaminophen (Tylenol) 1,000 mg Q6HR PRN PO PAIN 11/13/18 22:00 11/14/18 00:31 DC Acetaminophen (Tylenol) 1,000 mg Q6H PRN PO PAIN MILD 11/14/18 00:00 12/14/18 00:00 Ondansetron HCl (Zofran) 4 mg Q4H PRN IV NAUSEA / VOMITING 11/14/18 00:00 12/14/18 00:00 Pantoprazole Sodium (Protonix) 40 mg DAILY PO 11/14/18 09:00 12/14/18 08:59 Tramadol HCl (Ultram) 50 mg Q4HR PRN PO PAIN 11/14/18 00:00 12/14/18 00:00 Sodium Chloride 100 ml @ ud STK-MED ONCE IV 11/14/18 04:22 11/14/18 04:24 DC Piperacillin Sod/ Tazobactam Sod (Zosyn 3.375 Gram Vial) 3.375 gm STK-MED ONCE IV 11/14/18 04:22 11/14/18 04:24 DC Phenol/Menthol (Chloraseptic) 1 sprays PRN PRN MM PAIN 11/14/18 10:00 12/14/18 09:59 Sodium Chloride 100 ml @ ud STK-MED ONCE IV 11/14/18 17:29 11/14/18 17:31 DC Piperacillin Sod/ Tazobactam Sod (Zosyn 3.375 Gram Vial) 3.375 gm STK-MED ONCE IV 11/14/18 17:29 11/14/18 17:31 DC Course Sepsis Screening Results: Posi: POSITIVE Sepsis Qualifier/Stage: SEPSIS RISK Duration or Total Time Spent w: 2 HRS Vitals & review Data Vital Sign - Last 24 Hours 11/13/18 11/13/18 11/13/18 11/13/18 17:33 17:33 17:43 17:46 Temp 101.7 101.2 101.2 101.7 101.2 101.2 Pulse 106 102 102 109 Resp 32 32 32 26 B/P (MAP) 149/104 (119) Pulse Ox 92 92 93 O2 Delivery Nasal Canula Nasal Canula 11/13/18 17:47 Pulse 115 Resp 26 Pulse Ox 93 Laboratory Tests Test 11/13/18 18:00 White Blood Count 16.1 10^3/uL Red Blood Count 4.66 10^6/uL Hemoglobin 14.5 g/dL Hematocrit 44.2 % Mean Corpuscular Volume 94.8 fL Mean Corpuscular Hemoglobin 31.1 pg Mean Corpuscular Hemoglobin Concent 32.8 g/dL Red Cell Distribution Width 14.7 % Platelet Count 179 10^3/uL Mean Platelet Volume 10.1 fL Neutrophils (%) (Auto) 75.4 % Lymphocytes (%) (Auto) 15.1 % Monocytes (%) (Auto) 9.1 % Neutrophils # (Auto) 12.2 10^3/uL Lymphocytes # (Auto) 2.4 10^3/uL Monocytes # (Auto) 1.5 10^3/uL Absolute Immature Granulocyte (auto 0.03 10^3 u/L Eosinophils % 0.0 % Basophils % 0.2 % Basophils # 0.0 10^3/uL Eosinophil Count 0.0 10^3/uL Prothrombin Time 10.5 SEC Prothrombin Time INR (Non-Therap) 1.1 Activated Partial Thromboplast Time 26.3 SEC D-Dimer 2.14 mg/L Sodium Level 138 mmol/L Potassium Level 3.7 mmol/L Chloride Level 99.0 mmol/L Carbon Dioxide Level 22.9 mmol/L Anion Gap 19.8 Blood Urea Nitrogen 18 mg/dL Creatinine 1.30 mg/dL Estimated GFR () 48.1 BUN/Creatinine Ratio 13.0 Glucose Level 158 mg/dL Calcium Level 9.6 mg/dL Total Bilirubin 0.4 mg/dL Aspartate Amino Transf (AST/SGOT) 28 U/L Alanine Aminotransferase (ALT/SGPT) 16 U/L Alkaline Phosphatase 84 U/L Total Creatine Kinase 73 U/L Troponin I 0.04 ng/mL Pro-B-Type Natriuretic Peptide 1331 pg/mL Total Protein 8.9 g/dL Albumin 3.3 g/dL Globulin 5.6 Percent Immature Gran (Cell Imm) 0.20 % Helicobacter pylori Screen NEGATIVE Current Medications Medications (Trade) Dose Ordered Sig/Nj PRN Reason Start Time Stop Time Status Last Admin Piperacillin Sod/ Tazobactam Sod 3.375 gm/Sodium Chloride 100 ml @ 100 mls/hr Q6H 11/13/18 19:00 12/13/18 18:59 Sepsis Infection Criteria Pres: Documented Infection LEVEL 1 SEPSIS INFECTION CRITE: ABX Therapy, Cough/Shortness of Breath, Fever/ Chills LEVEL 2-SIRS (LIST ALL THAT AP: None/Not assessed Cardiovascular Evidence: Not Assessed or None Hematologic Evidence: None/Not assessed Hepatic Evidence: None/Not assessed Metabolic Evidence: None/Not assessed Neurological Evidence: None/Not assessed Respiratory Evidence: Need for O2 to keep>90% Renal Evidence: None/Not assessed O2 Sat by Pulse Oximetry: 95 Oxygen Flow Rate: 4.00 Assessment/Plan Assessment/Plan Problems: (1) Infectious encephalopathy Assessment & Plan: Secondary to UTI. Continues to improve. Now at baseline. Ok to go back to SNF today on Augmentin which should cover her infection. ICD Code: G93.49 - Other encephalopathy; B99.9 - Unspecified infectious disease SNOMED: 87474660, 74051648 (2) UTI (urinary tract infection) Status: Acute Assessment & Plan: Resolving. No fever or other sx. ICD Code: N39.0 - Urinary tract infection, site not specified SNOMED: 95476442 (3) Diastolic CHF, acute on chronic Status: Chronic Assessment & Plan: Improved breathing and energy with diuresis. May need to be on chronic diuresis at SNF. Will defer to her pcp at [facility]. ICD Code: I50.33 - Acute on chronic diastolic (congestive) heart failure SNOMED: 74789753, 402562749 (4) Altered mental status Assessment & Plan: Same as #1. Secondary to UTI on top of her chronic dementia. ICD Code: R41.82 - Altered mental status, unspecified SNOMED: 072635928 (5) Dehydration Status: Acute Assessment & Plan: Resolved with IVF. Continue aggressive po intake at SNF. ICD Code: E86.0 - Dehydration SNOMED: 15252985 (6) Dementia Status: Chronic Assessment & Plan: At baseline. ICD Code: F03.90 - Unspecified dementia without behavioral disturbance SNOMED: [id number] AROLDO LEW MD Nov 17, 2018 13:49
--- NOTE | 2018-11-17 14:57 | DSH ---
DATE OF DISCHARGE: 11/17/2018 ADMITTING DIAGNOSES: 1. Decreased mental status. 2. Nausea, vomiting. 3. Fever. 4. Shortness of breath. 5. Severe generalized weakness. 6. Chronic dementia. DISCHARGE DIAGNOSES: 1. Infectious encephalopathy. 2. Urinary tract infection. 3. Acute on chronic diastolic congestive heart failure. 4. Reactive airway disease. 5. Chronic dementia. 6. Chronic severe weakness. 7. Moderate protein calorie malnutrition. DISCHARGE MEDICATIONS: 1. Augmentin 875 mg b.i.d. for 7 days. 2. Combivent 2 puffs b.i.d. 3. Megace 400 mg p.o. b.i.d. 4. Resume previous home medications. DISCHARGE DISPOSITION: Going to be [facility] in [place] [employer]. FOLLOW UP: Follow up with PCP at [facility]. HOSPITAL COURSE: This is a 78-year-old female with chronic dementia that was admitted to [facility] on 11/13/2018 for shortness of breath, fever and severe generalized confusion. The patient was much worse than her normal chronic dementia in terms of her altered mental status. She was not able to wake up and interact and perform activities of daily living. On arrival to the Emergency Room Department, she was found to have a white blood cell count of 16.1. Urinalysis revealed significant urinary tract infection at that time and she was placed on IV antibiotics. Her white blood cell count came down to 8.5 on day prior to discharge. Blood gas was stable on admission. Her urine culture did grow out E. coli and was very sensitive to Augmentin, which was her ultimate antibiotic. Her mental status improved significantly every day until 11/17/2018 at which point she was at her baseline. She was about the same level of weakness as she is at the [facility]. I told her that I want her to try to get some physical therapy when she goes back to the [facility]. X-ray was obtained on admission to evaluate for pneumonia and showed only fibrotic changes. The patient does have a history of diastolic congestive heart failure and she did have some fluid overload and shortness of breath with mild hypoxia on admission. It was felt she likely was positive for an acute on chronic diastolic heart failure exacerbation. She was put on IV diuresis, which helped her breathing significantly. She had very minimal wheezing on day of discharge and I felt like she would do well with some intermittent diuresis at the [facility] facility, but I will defer that to her PCP. She may also benefit from having Combivent once or twice daily. The patient's family was concerned about her nutrition as was I. She did pass her swallow study, but she was still not eating much. She mostly wanted to eat sweets and snack rather than eat her meals. I started Megace and I wanted this to be continued at the [facility] facility as well. Otherwise, she looks very good today and is stable for discharge to [facility] facility in [place] [employer]. Keith Mcnally MD DR: LIBIA/itzel JOB# [id number]
[2018-11-17 15:23] VITALS: BP 134/89
--- NOTE | 2018-11-17 15:25 | NUR ---
DISCHARGE [facility] P[facility] HERE AT THIS TIME TO TRANSPORT PATIENT FOR DISCHARGE. GONZALEZ WAS DISCONTINUED, PICTURES TAKEN OF PRESSURE AREA ON BUTTOX, TELEMETRY DISCONTINUED. SCRIPTS CALLED IN TO [facility]. PATIENT DENIES ADDITIONAL NEEDS AT THIS TIME. RELINQUISHED CARE FOR PATIENT AT THIS TIME.
--- NOTE | 2018-11-18 08:52 | ECHO ---
DATE OF SERVICE: 11/16/2018 FINDINGS: 1. The left ventricle is normal size and normal contractility. Left ventricular ejection fraction is 58%. There were no regional wall motion abnormalities. The right ventricle was enlarged. There was loculated pericardial effusion sitting over the right ventricle, which is possibly epicardial fat pad. There is no evidence of tamponade. 2. The aortic valve is a normal three leaflet valve without stenosis or insufficiency. The mitral valve has some thickening in the posterior leaflet. There was no mitral regurgitation. Tricuspid valve is anatomically normal. There is only a trace of tricuspid regurgitation. There are no masses, vegetations or thrombi seen in the intracardiac chambers. CONCLUSION: 1. Normal left ventricular size and function. 2. Right ventricular enlargement. 3. Small pericardial effusion versus anterior wall fat pad. 4. No evidence of tamponade. 5. Otherwise, essentially normal echocardiogram. RIYA DAS MD DR: FLORENCIO/itzel JOB# [id number]
--- NOTE | 2018-11-20 11:17 | LAB ---
LABS LAB RESULTS Laboratory Tests Test 11/13/18 18:00 11/13/18 19:55 11/14/18 05:10 11/15/18 05:06 White Blood Count 16.1 10^3/uL 18.5 10^3/uL 11.3 10^3/uL Red Blood Count 4.66 10^6/uL 3.94 10^6/uL 4.13 10^6/uL Hemoglobin 14.5 g/dL 12.3 g/dL 12.9 g/dL Hematocrit 44.2 % 37.7 % 39.7 % Mean Corpuscular Volume 94.8 fL 95.7 fL 96.1 fL Mean Corpuscular Hemoglobin 31.1 pg 31.2 pg 31.2 pg Mean Corpuscular Hemoglobin Concent 32.8 g/dL 32.6 g/dL 32.5 g/dL Red Cell Distribution Width 14.7 % 14.6 % 14.8 % Platelet Count 179 10^3/uL 164 10^3/uL 141 10^3/uL Mean Platelet Volume 10.1 fL 9.9 fL 10.1 fL Neutrophils (%) (Auto) 75.4 % 69.9 % 72.6 % Lymphocytes (%) (Auto) 15.1 % 20.3 % 18.0 % Monocytes (%) (Auto) 9.1 % 9.7 % 8.1 % Neutrophils # (Auto) 12.2 10^3/uL 13.0 10^3/uL 8.2 10^3/uL Lymphocytes # (Auto) 2.4 10^3/uL 3.8 10^3/uL 2.0 10^3/uL Monocytes # (Auto) 1.5 10^3/uL 1.8 10^3/uL 0.9 10^3/uL Absolute Immature Granulocyte (auto 0.03 10^3 u/L Eosinophils % 0.0 % 0.0 % 1.1 % Basophils % 0.2 % 0.1 % 0.2 % Basophils # 0.0 10^3/uL 0.0 10^3/uL 0.0 10^3/uL Eosinophil Count 0.0 10^3/uL 0.0 10^3/uL 0.1 10^3/uL Prothrombin Time 10.5 SEC Prothrombin Time INR (Non-Therap) 1.1 Activated Partial Thromboplast Time 26.3 SEC D-Dimer 2.14 mg/L Sodium Level 138 mmol/L 141 mmol/L 141 mmol/L Potassium Level 3.7 mmol/L 3.6 mmol/L 3.3 mmol/L Chloride Level 99.0 mmol/L 103.0 mmol/L 104.0 mmol/L Carbon Dioxide Level 22.9 mmol/L 25.6 mmol/L 24.5 mmol/L Anion Gap 19.8 16.0 15.8 Blood Urea Nitrogen 18 mg/dL 22 mg/dL 17 mg/dL Creatinine 1.30 mg/dL 1.34 mg/dL 1.13 mg/dL Estimated GFR () 48.1 46.4 56.5 BUN/Creatinine Ratio 13.0 16.0 15.0 Glucose Level 158 mg/dL 128 mg/dL 93 mg/dL Calcium Level 9.6 mg/dL 8.9 mg/dL 8.6 mg/dL Total Bilirubin 0.4 mg/dL 0.3 mg/dL 0.4 mg/dL Aspartate Amino Transf (AST/SGOT) 28 U/L 25 U/L 35 U/L Alanine Aminotransferase (ALT/SGPT) 16 U/L 13 U/L 14 U/L Alkaline Phosphatase 84 U/L 58 U/L 54 U/L Total Creatine Kinase 73 U/L 121 U/L Troponin I 0.04 ng/mL Pro-B-Type Natriuretic Peptide 1331 pg/mL Total Protein 8.9 g/dL 7.5 g/dL 7.3 g/dL Albumin 3.3 g/dL 2.7 g/dL 2.5 g/dL Globulin 5.6 4.8 4.8 Percent Immature Gran (Cell Imm) 0.20 % Helicobacter pylori Screen NEGATIVE Urine Collection Type CATH Urine Color YELLOW Urine Appearance CLOUDY Urine Bilirubin NEGATIVE MG/DL Urine Ketones 15 mg/dL Urine Specific [place] 1.020 Urine pH 5 Urine Protein 100 mg/dL Urine Urobilinogen NORMAL Urine Nitrate POSITIVE Urine Leukocyte Esterase NEGATIVE Urine Blood 50 2+ Urine RBC 2-5 RBC/HPF Urine WBC TNTC WBC/HPF Urine Squamous Epithelial Cells NONE SEEN #/HPF Urine Bacteria MANY Urine Glucose NORMAL Hemoglobin A1c 4.9 % Triglycerides Level 78 mg/dL Cholesterol Level 198 mg/dL LDL Cholesterol, Calculated 142.4 VLDL Cholesterol 15.6 HDL Cholesterol 40 mg/dL Cholesterol Ratio (LDL/HDL) [id number] Test 11/15/18 11:13 11/15/18 11:18 11/15/18 17:04 11/16/18 05:06 Pro-B-Type Natriuretic Peptide 1755 pg/mL Blood Gas Sample Site RT RADIAL ARTERY Blood Gas pH 7.480 Blood Gas PCO2 37.3 mmHg Blood Gas PO2 66.6 mmHg Blood Gas HCO3 27.2 mmol/L Blood Gas Base Excess 3.7 mmol/L Rd Test POSITIVE Arterial Blood Oxygen Saturation 95.0 % Deoxyhemoglobin 4.9 % Carboxyhemoglobin 1.2 % Methemoglobin 0.3 % Total Hemoglobin 15.4 % Total Oxygen Concentration 20.2 % Lactic Acid (Blood Gas) 1.3 MMOL/L Blood Gas Temperature 37 Oxygen Delivery Method (LAB) NASAL CANNULA FiO2 32 % Bicarbonate 28.3 mmol/L Sodium Level 139 mmol/L 139 mmol/L Potassium Level 2.9 mmol/L 3.5 mmol/L Chloride Level 97.0 mmol/L 100.0 mmol/L Carbon Dioxide Level 27.8 mmol/L 26.7 mmol/L Glucose Level 114 mg/dL 106 mg/dL Blood Urea Nitrogen 15 mg/dL 19 mg/dL Creatinine 1.27 mg/dL 1.20 mg/dL Calcium Level 8.6 mg/dL 8.6 mg/dL Anion Gap 17.1 15.8 Estimated GFR () 49.4 52.7 BUN/Creatinine Ratio 11.0 15.0 White Blood Count 8.5 10^3/uL Red Blood Count 4.45 10^6/uL Hemoglobin 13.6 g/dL Hematocrit 41.9 % Mean Corpuscular Volume 94.2 fL Mean Corpuscular Hemoglobin 30.6 pg Mean Corpuscular Hemoglobin Concent 32.5 g/dL Red Cell Distribution Width 14.7 % Platelet Count 158 10^3/uL Mean Platelet Volume 9.9 fL Total Bilirubin 0.5 mg/dL Aspartate Amino Transf (AST/SGOT) 52 U/L Alanine Aminotransferase (ALT/SGPT) 19 U/L Alkaline Phosphatase 57 U/L Total Protein 8.0 g/dL Albumin 2.6 g/dL Globulin 5.4 [employer] Nov 20, 2018 11:16
== END 2018-11-17 15:25 | DRG 871 ==
LOC: ER 17:30 → EDBD 17:30 → MS 20:41 → EDPENDDISTM 11-17 15:23
PROVIDERS: ADMIT Internal Medicine; ATTEND Internal Medicine
DX: A41.9 Sepsis, unspecified organism (principal); I50.33 Acute on chronic diastolic (congestive) heart failure; G93.49 Other encephalopathy; N39.0 Urinary tract infection, site not specified; E44.0 Moderate protein-calorie malnutrition; I13.0 Hypertensive heart and chronic kidney disease with heart failure and stage 1 through stage 4 chronic kidney disease, or unspecified chronic kidney disease; M19.90 Unspecified osteoarthritis, unspecified site; E86.0 Dehydration; N18.3 Chronic kidney disease, stage 3 (moderate); B96.20 Unspecified Escherichia coli [E. coli] as the cause of diseases classified elsewhere; R09.02 Hypoxemia; R65.20 Severe sepsis without septic shock; J44.9 Chronic obstructive pulmonary disease, unspecified; F03.90 Unspecified dementia, unspecified severity, without behavioral disturbance, psychotic disturbance, mood disturbance, and anxiety; E03.9 Hypothyroidism, unspecified; F41.1 Generalized anxiety disorder; Z90.710 Acquired absence of both cervix and uterus; Z79.899 Other long term (current) drug therapy; Z87.891 Personal history of nicotine dependence; Z68.30 Body mass index [BMI] 30.0-30.9, adult
CPT/HCPCS: 36415; 36600; 71045; 80048; 80053; 80061; 81000; 82550; 82803; 83036; 83880; 84484; 85025; 85027; 85379; 85610; 85730; 86677; 87040; 87077; 87086; 87186; 92526; 92610; 93005; 93307; 94640; 99285; A4338; G0378; J1100; J1940; J2405; J2543; J3480; J7030; J7050; J7620

== ENCOUNTER → 2018-11-13 | Outpatient (CLI) | payer MEDICARE, MEDICAID ==
[~2018-11-13] MED LIST changes: +LEVO175T5 PO
[2018-11-13 16:48] LABS: CALCIUM 9.6 mg/dL (8.4-10.5); CARBON DIOXIDE 25.5 mmol/L (20.0-32)
[2018-11-13 17:02] LABS: BASOPHIL % 0.3 % (0.0-0.2); EOSINOPHIL % 0.1 % (0.0-5.0); HEMOGLOBIN 14.8 g/dL (12.0-15.0); LYMPHOCYTES # 2.9 10^3/uL (1.0-4.8); LYMPHOCYTES % 29.4 % (24.0-44.0); MEAN CELL HGB 31.1 pg (26-34); MEAN CELL HGB CONCENTRATION 32.7 g/dL (33-37); MEAN PLATELET VOLUME 10.5 fL (7.8-11.0); MONOCYTES # 1.2 10^3/uL (0.3-0.8); MONOCYTES % 12.6 % (5.0-12.0); NEUTROPHIL # 5.7 10^3/uL (1.8-7.7); NEUTROPHILS % 57.4 % (41.0-85.0); RED CELL DISTRIBUTION WIDTH 14.8 % (11.5-14.5); WHITE BLOOD CELL 9.9 10^3/uL (4.5-11.0)
== END | disposition home or self-care (01) ==
LOC: NPLAB 16:16
PROVIDERS: ATTEND Family Medicine
DX: E86.0 Dehydration (principal)
CPT/HCPCS: 80053; 85025

== ENCOUNTER 2019-03-09 15:01 | Emergency (ER) | payer MEDICARE, MEDICAID ==
[~2019-03-09] VITALS: Ht 152.4 cm; Wt 54.4 kg
[~2019-03-09 15:01] MED LIST changes: +LEVO175T5 PO; +MEGE625O PO; +PRED20TA PO
[2019-03-09 15:17] VITALS: BP 153/66
--- NOTE | 2019-03-09 15:53 | ER.PDOC ---
General Chief Complaint: General Complaint Stated Complaint: TIA Time seen by MD: 15:38 Source: patient, family (daughter) Exam Limitations: no limitations History of Present Illness Initial Comments Pt brought in by EMS from [place] because she was having trouble feeding herself this morning, and had some possible trouble speaking. Reportedly weak all over. Austen saleemmily states pt has normal speech for her, and notices no difference in strength, at baseline. Context: residential resident Usually: alert but confused Prior symptoms/Treatment: No Recenly Seen Allergies: Coded Allergies: No Known Drug Allergies (Verified Allergy, Unknown, 05/01/16) Home Meds Active Scripts Megestrol Acetate (MEGACE ES) 625 Mg/5 Ml Oral.susp, 625 MG PO BID for 30 Days, 3 Refills Prov:AROLDO LEW MD 11/17/18 Amoxicillin/Potassium Clav (AUGMENTIN 875-125 TABLET) 1 Each Tablet, 1 EACH PO BID for 5 Days, #10 Prov:AROLDO LEW MD 11/17/18 Risperidone (RISPERDAL) 0.25 Mg Tablet, 0.25 MG PO HS, #30 TABLET Prov:KEITH CUNNINGHAM MD 01/12/17 Metoprolol Tartrate 25MG (LOPRESSER 25MG) 25 Mg Tablet, 12.5 MG PO BID, #1 TABLET Prov:CHARBEL IBRAHIM MD 05/04/16 Donepezil Hcl (ARICEPT) 5 Mg Tablet, 10 MG PO HS, #1 TABLET Prov:CHARBEL IBRAHIM MD 05/04/16 Reported Medications Prednisone (PREDNISONE) 20 Mg Tablet, 2 TAB PO DAILY for 3 Days, #6 TAB 11/17/18 Levothyroxine Sodium (LEVOTHYROXINE SODIUM) 175 Mcg Tablet, 1 TAB PO DAILY, #90 TAB 1 Refill 11/14/18 Buspirone Hcl (BUSPIRONE HCL) 10 Mg Tablet, 1 TAB PO TID, #60 TAB 2 Refills 08/07/17 Sertraline Hcl (ZOLOFT) 100 Mg Tablet, 200 MG PO DAILY, TABLET 08/07/17 Amlodipine Besylate (NORVASC) 10 Mg Tablet, 1 TAB PO DAILY, #30 TAB 5 Refills 08/07/17 Loratadine (CLARITIN) 10 Mg Tablet, 1 TAB PO DAILY, #30 TAB 5 Refills 08/07/17 Triamcinolone Acetonide (Nasacort) 10.8 Ml [place], 10.8 ML NS DAILY, SPRAY 01/04/17 Acetaminophen (TYLENOL EXTRA STRENGTH) 500 Mg Tablet, 500 MG PO BID, TABLET 01/04/17 Memantine Hcl (NAMENDA) 10 Mg Tablet, 1 TAB PO BID, #180 TAB 1 Refill 01/04/17 Lactobacillus Acidophilus (ACIDOPHILUS) 1 Each Capsule, 2 EACH PO BID, CAPSULE 01/04/17 Past Medical History Medical History: asthma, CVA/TIA/stroke, congestive heart failure, diabetes, hypertension, renal disease, thyroid disease Surgical History: hysterectomy, knee Social History Smoking: non-smoker Alcohol Use: none Drug Use: none Review of Systems Constitutional: other (fatigued) Eyes: no symptoms reported Ears, Nose, Mouth, Throat: no symptoms reported Respiratory: no symptoms reported Cardiovascular: no symptoms reported Gastrointestinal: no symptoms reported Genitourinary: no symptoms reported Skin: no symptoms reported Psychiatric/Neurological: see HPI Endocrine: no symptoms reported All Other Systems: Reviewed and Negative Physical Exam General Appearance: alert, other (smiling, pleasant) HEENT: no apparent trauma Neuro/Psych: dysarthria (mild at times - baseline per daughter), other (b/l leg weakness -- baseline per daughter) Cranial Nerves: nml as tested Cerebellar: nml as tested Neck: supple, non-tender Respiratory: no resp distress, breath sounds nml CVS: reg rate & rhythm Abdomen: non-tender Skin: color nml, no rash, other (scattered areas of superficial ecchymosis on arms) Results/Orders Results/Orders Orders - RODRÍGUEZ BOWDEN DO Cbc With Auto Diff (03/09/19 15:48) Comprehensive Metabolic Panel (03/09/19 15:48) Creatine Kinase (03/09/19 15:48) Troponin I (03/09/19 15:48) Probnp B-Type [employer] (03/09/19 15:48) Xr Chest 1v (03/09/19 15:48) Ekg-Routine (03/09/19 15:48) Ct Head Wo Contrast (03/09/19 15:48) Urinalysis (03/09/19 15:50) Vital Signs Date Time Temp Pulse Resp B/P (MAP) Pulse Ox O2 Delivery O2 Flow Rate FiO2 03/09/19 15:17 98.1 72 16 153/66 (95) 94 Room Air 98.1 03/09/19 15:08 98.1 72 16 94 Room Air 98.1 03/09/19 15:08 98.1 72 16 98.1 Laboratory Tests Test 03/09/19 16:11 03/09/19 16:57 White Blood Count 9.1 10^3/uL (4.5-11.0) Red Blood Count 4.66 10^6/uL (4.00-5.20) Hemoglobin 14.3 g/dL (12.0-15.0) Hematocrit 43.6 % (36.0-46.0) Mean Corpuscular Volume 93.6 fL (78-100) Mean Corpuscular Hemoglobin 30.7 pg (26-34) Mean Corpuscular Hemoglobin Concent 32.8 g/dL (33-37) L Red Cell Distribution Width 15.0 % (11.5-14.5) H Platelet Count 179 10^3/uL (150-400) Mean Platelet Volume 10.1 fL (7.8-11.0) Neutrophils (%) (Auto) 40.2 % (41.0-85.0) L Lymphocytes (%) (Auto) 42.6 % (24.0-44.0) Monocytes (%) (Auto) 10.4 % (5.0-12.0) Neutrophils # (Auto) 3.7 10^3/uL (1.8-7.7) Lymphocytes # (Auto) 3.9 10^3/uL (1.0-4.8) Monocytes # (Auto) 1.0 10^3/uL (0.3-0.8) H Absolute Immature Granulocyte (auto 0.01 10^3 u/L (0-2) Immature Granulocytes % 0.10 % (0.00-0.50) Eosinophils % 6.4 % (0.0-5.0) H Basophils % 0.3 % (0.0-0.2) H Basophils # 0.0 10^3/uL (0.0-0.1) Eosinophil Count 0.6 10^3/uL (0.0-0.2) H Sodium Level 144 mmol/L (132-145) Potassium Level 4.3 mmol/L (3.6-5.2) Chloride Level 106.0 mmol/L (96-109) Carbon Dioxide Level 25.4 mmol/L (20.0-32) Anion Gap 16.9 Blood Urea Nitrogen 25 mg/dL (7-18) H Creatinine 1.15 mg/dL (0.59-1.40) Estimated GFR () 55.4 (>/=60) BUN/Creatinine Ratio 21.0 Glucose Level 117 mg/dL (70-110) H Calcium Level 9.5 mg/dL (8.4-10.5) Total Bilirubin 0.1 mg/dL (0.2-1.0) L Aspartate Amino Transferase (AST) 21 U/L (0-35) Alanine Aminotransferase (ALT) 15 U/L (12-78) Alkaline Phosphatase 88 U/L (50-136) Total Creatine Kinase 24 U/L (26-192) L Troponin I < 0.02 ng/mL (0.00-0.05) Pro-B-Type Natriuretic Peptide 260 pg/mL (0-450) Total Protein 7.3 g/dL (6.4-8.2) Albumin 3.1 g/dL (3.4-5.0) L Globulin 4.2 Urine Collection Type CATH Urine Color YELLOW (YELLOW) Urine Appearance CLEAR (CLEAR) Urine Bilirubin NEGATIVE MG/DL (NEGATIVE) Urine Ketones NEGATIVE (NEGATIVE) Urine Specific [place] 1.020 (1.005-1.035) Urine pH 5 (5.0-6.0) Urine Protein NEGATIVE (NEGATIVE) Urine Urobilinogen NORMAL (NEGATIVE) Urine Nitrate NEGATIVE (NEGATIVE) Urine Leukocyte Esterase NEGATIVE (NEGATIVE) Urine Blood NEGATIVE (NEGATIVE) Urine Glucose NORMAL (NEGATIVE) Progress Progress Pt's labs do not show significant abnormalities, CT head with lg territory infarct or bleed, Pt at baseline mental status per daughterFernando Cramer agrees with discharge, no fever or UTI seen, symptoms inconsistent with stroke. Will d/c home. EKG/XRAY/CT/US EKG: NSR EKG Comments: nml, no ischemia XRAY: chest XRAY Comments: chronic changes, no acte abnormality CT Comments: chronic changes, remote BG infarcts Departure Time of Disposition: 17:50 Disposition: 01 HOME, SELF-CARE Impression: Primary Impression: Weakness generalized Condition: Stable Referrals: CARMELO GIBSON ACID CRANE OPERATOR (PCP) PRIMARY CARE PROVIDER Duration or Time Spent with Pa: 30 RODRÍGUEZ BOWDEN DO Mar 09, 2019 15:53
--- NOTE | 2019-03-09 16:02 | PCM.EKG ---
[facility] Test Date: 2019-03-09 Test Time: 16:02:23 Pat Name: JESSICA STEVE Department: Room: Gender: F Hris Manager: : 1940 Requested By: RODRÍGUEZ BOWDEN Order Number: [id number] Reading MD: Rodríguez Bowden Measurements Intervals [place] Rate: 70 P: 64 AK: 198 QRS: -20 QRSD: 82 T: 83 QT: 426 QTc: 460 Interpretive Statements Normal sinus rhythm Normal ECG Compared to ECG 11/13/2018 17:57:24 Sinus tachycardia no longer present Left-axis deviation no longer present Myocardial infarct finding no longer present Electronically Signed On 03-10-2019 3:49:25 CDT by Rodríguez Bowden Please click the below link to view image of tracing.
[2019-03-09 16:15] VITALS: BP 153/66
[2019-03-09 16:16] LABS: BASOPHIL % 0.3 % (0.0-0.2); EOSINOPHIL # 0.6 10^3/uL (0.0-0.2); EOSINOPHIL % 6.4 % (0.0-5.0); HEMOGLOBIN 14.3 g/dL (12.0-15.0); LYMPHOCYTES # 3.9 10^3/uL (1.0-4.8); LYMPHOCYTES % 42.6 % (24.0-44.0); MEAN CELL HGB 30.7 pg (26-34); MEAN CELL HGB CONCENTRATION 32.8 g/dL (33-37); MEAN CORP VOLUME 93.6 fL (78-100); MEAN PLATELET VOLUME 10.1 fL (7.8-11.0); MONOCYTES % 10.4 % (5.0-12.0); NEUTROPHIL # 3.7 10^3/uL (1.8-7.7); NEUTROPHILS % 40.2 % (41.0-85.0); WHITE BLOOD CELL 9.1 10^3/uL (4.5-11.0)
--- NOTE | 2019-03-09 16:33 | NUR ---
CT PT BACK FROM CT SCAN.
[2019-03-09 16:44] LABS: ALANINE AMINOTRANSFERASE(ML) 15 U/L (12-78); ALKALINE PHOSPHATASE 88 U/L (50-136); ASPARTATE AMINO TRANSFERASE 21 U/L (0-35); CALCIUM 9.5 mg/dL (8.4-10.5); CARBON DIOXIDE 25.4 mmol/L (20.0-32); GLUCOSE 117 mg/dL (70-110)
--- NOTE | 2019-03-09 16:57 | DIREP ---
PROCEDURE:CT HEAD WITHOUT CONTRAST TECHNIQUE:Axial cuts were obtained through the head, without intravenous contrast material. The images were viewed at brain and bone settings. COMPARISON:None. INDICATIONS:confusion, weakness FINDINGS: VENTRICLES:Ventricles, sulci and cisterns are enlarged consistent with generalized atrophy. CEREBRUM:Symmetrically diminished attenuation in the deep white matter consistent with leukoaraiosis. Small lacunar infarcts in the basal ganglia and thalamic regions. No hemorrhage or mass lesion. CEREBELLUM:Normal. BRAINSTEM:Normal. SKULL:Normal. SINUSES:Normal. OTHER:Arterial calcifications. CONCLUSION: 1. Generalized atrophy. 2. Leukoaraiosis. 3. Small lacunar infarcts in the basal ganglia and thalamic regions of uncertain age. Dictated by: Dagoberto Cosme M.D. on 03/09/2019 at 04:46 PM
[2019-03-09 17:04] LABS: BILIRUBIN,URINE NEGATIVE (NEGATIVE); UROBILINOGEN,URINE NORMAL (NEGATIVE)
[2019-03-09 17:05] LABS: APPEARANCE,URINE CLEAR (CLEAR); UA COLOR YELLOW (YELLOW)
--- NOTE | 2019-03-09 17:05 | DIREP ---
PROCEDURE:CHEST 1 VIEW COMPARISON:[facility], CR, XRAY CHEST SINGLE VW, 11/15/2018, 12:50 PM. INDICATIONS:weakness FINDINGS: LUNGS/PLEURA:Shallow inspiratory effort. Coarse interstitial markings are present in both lungs which were on previous study. No new infiltrates. VASCULATURE:Normal. Unremarkable pulmonary vasculature. CARDIAC:Normal. No cardiac silhouette abnormality or cardiomegaly. MEDIASTINUM:Calcified aorta. BONES:Osteophytes in the thoracic spine. OTHER:Negative. CONCLUSION:Chronic changes in both lungs consistent with fibrosis. No new abnormalities as compared to previous study. Dictated by: Dagoberto Cosme M.D. on 03/09/2019 at 05:03 PM
[2019-03-09 17:15] VITALS: BP 163/75
--- NOTE | 2019-03-09 17:55 | NUR ---
[facility] CALLED, REPORT GIVEN, NOTIFIED OF NEED FOR TRANSPORT.
[2019-03-09 18:15] VITALS: BP 141/76
[2019-03-09 19:26] VITALS: BP 141/76
== END 2019-03-09 18:35 | disposition home or self-care (01) ==
LOC: EDBD 15:01 → ER 15:01
DX: R53.1 Weakness (principal); R41.0 Disorientation, unspecified; R47.1 Dysarthria and anarthria; R58 Hemorrhage, not elsewhere classified; I11.0 Hypertensive heart disease with heart failure; I50.9 Heart failure, unspecified; E07.9 Disorder of thyroid, unspecified; E11.9 Type 2 diabetes mellitus without complications; J45.909 Unspecified asthma, uncomplicated; Z79.899 Other long term (current) drug therapy; Z86.73 Personal history of transient ischemic attack (TIA), and cerebral infarction without residual deficits; Z90.710 Acquired absence of both cervix and uterus
CPT/HCPCS: 36415; 70450; 71045; 80053; 81002; 82550; 83880; 84484; 85025; 93005; 99285

== ENCOUNTER → 2019-04-11 | Outpatient (CLI) | payer MEDICARE, MEDICAID ==
--- NOTE | 2019-04-11 11:08 | DIREP ---
PROCEDURE:CT CHEST WITH CONTRAST TECHNIQUE:Following the intravenous administration of contrast material, axial cuts were obtained through the chest. The images were viewed at lung and soft tissue settings. Sagittal and coronal reconstructions are provided. COMPARISON:None. INDICATIONS:CHRONIC COUGH, NON PRODUCTIVE FINDINGS: LUNGS:Dilated airways in the right upper lobe consistent with bronchiectasis. Cystic change in the lingula series 5, image 22. Mildly increased interstitial markings throughout both lungs. No infiltrates, nodules or mass lesions. CARDIAC:Cardiomegaly with coronary artery calcifications. There is calcification in the mitral annulus. THORACIC AORTA:Heavily calcified. Plaque is present in the descending thoracic aorta. MEDIASTINUM/NISHA:Normal. PLEURA:Normal. CHEST WALL:Normal. LIMITED ABDOMEN:Normal. BONES:Osteophytes in the thoracic spine. THYROID:Normal. OTHER:No additional findings. CONCLUSION: 1. Cardiomegaly with atherosclerosis. 2. Bronchiectasis right upper lobe. 3. Cystic change in the lingula. Increased interstitial markings in both lungs consistent with fibrosis. Dictated by: Dagoberto Cosme M.D. on 04/11/2019 at 10:59 AM
== END | disposition home or self-care (01) ==
LOC: RAD 09:40
PROVIDERS: ATTEND Family Medicine
DX: J47.9 Bronchiectasis, uncomplicated (principal); I70.0 Atherosclerosis of aorta; I51.7 Cardiomegaly
CPT/HCPCS: 71260; Q9965

== ENCOUNTER → 2019-12-29 | Outpatient (CLI) | payer MEDICARE, MEDICAID ==
[~2019-12-29] MED LIST changes: +APIX2.5T PO; +BENZ100C PO; +CALC-157 PO; +DOCU-123 PO; +GUAI600T31 PO; +IPRA4AER IH; +LACT1CAP34 PO; +LEVO175T2 PO; +MIRT30TA PO; +SERT100T5 PO; +TRAM50TA PO
[2019-12-29 14:06] LABS: BASOPHIL % 0.1 % (0.0-0.2); EOSINOPHIL # 1.6 10^3/uL (0.0-0.2); EOSINOPHIL % 8.9 % (0.0-5.0); LYMPHOCYTES # 6.28 10^3/uL1 (1.0-4.8); LYMPHOCYTES % 35.2 % (24.0-44.0); MEAN CORP HGB 30.3 pg (26-34); MONOCYTES % 5.4 % (5.0-12.0); NEUTROPHIL # 8.9 10^3/uL (1.8-7.7); NEUTROPHILS % 50.1 % (41.0-85.0); PLATELET COUNT 189 10^3/uL (150-400); RED CELL DISTRIBUTION WIDTH 14.6 % (11.5-14.5)
[2019-12-29 14:26] LABS: CALCIUM 8.9 mg/dL (8.4-10.5)
[2019-12-29 17:16] LABS: DIFFERENTIAL COMMENT NORMAL; EOSINOPHIL 14 % (1-4); LYMPHOCYTE 37 % (25-36); MONOCYTE 8 % (3-9); SEGMENTED NEUTROPHILS 41 % (31-76)
== END | disposition home or self-care (01) ==
LOC: LAB 13:51
PROVIDERS: ATTEND Family Medicine
DX: I50.23 Acute on chronic systolic (congestive) heart failure (principal); J18.9 Pneumonia, unspecified organism
CPT/HCPCS: 80053; 85025

== ENCOUNTER → 2020-01-02 | Outpatient (CLI) | payer MEDICARE, MEDICAID ==
[2020-01-02 13:20] LABS: CALCIUM 9.1 mg/dL (8.4-10.5); CARBON DIOXIDE 33.2 mmol/L (20.0-32)
[2020-01-02 13:31] LABS: BASOPHIL % 0.2 % (0.0-0.2); EOSINOPHIL # 1.8 10^3/uL (0.0-0.2); EOSINOPHIL % 10.5 % (0.0-5.0); LYMPHOCYTES # 5.67 10^3/uL1 (1.0-4.8); LYMPHOCYTES % 32.7 % (24.0-44.0); MEAN CORP HGB 30.6 pg (26-34); MONOCYTES # 1.3 10^3/uL (0.3-0.8); MONOCYTES % 7.7 % (5.0-12.0); NEUTROPHIL # 8.4 10^3/uL (1.8-7.7); NEUTROPHILS % 48.2 % (41.0-85.0); PLATELET COUNT 220 10^3/uL (150-400); RED CELL DISTRIBUTION WIDTH 14.5 % (11.5-14.5)
[2020-01-02 19:02] LABS: BAND NEUTROPHILS 0 % (2-6); BASOPHIL 2 % (0-2); EOSINOPHIL 12 % (1-4); LYMPHOCYTE 23 % (25-36); MONOCYTE 10 % (3-9); OTHER CELL TYPE 1; SEGMENTED NEUTROPHILS 52 % (31-76)
== END | disposition home or self-care (01) ==
LOC: NPLAB 12:31
PROVIDERS: ATTEND Family Medicine
DX: I10 Essential (primary) hypertension (principal)
CPT/HCPCS: 80053; 85025

== ENCOUNTER → 2020-01-05 | Outpatient (CLI) | payer MEDICARE, MEDICAID | END | disposition home or self-care (01) | LOC: LAB 15:42 | PROVIDERS: ATTEND Family Medicine | DX: J18.9 Pneumonia, unspecified organism (principal) | CPT/HCPCS: 80202 ==

== ENCOUNTER → 2020-01-06 | Outpatient (CLI) | payer MEDICARE, MEDICAID | END | disposition home or self-care (01) | LOC: NPLAB 11:00 | PROVIDERS: ATTEND Family Medicine | DX: J18.9 Pneumonia, unspecified organism (principal) | CPT/HCPCS: 80202 ==

== ENCOUNTER → 2020-01-07 | Outpatient (CLI) | payer MEDICARE, MEDICAID | END | disposition home or self-care (01) | LOC: NPLAB 16:23 | PROVIDERS: ATTEND Family Medicine | DX: Z51.81 Encounter for therapeutic drug level monitoring (principal) | CPT/HCPCS: 36415; 80202 ==